=== PATIENT | female | born 2000 | race Caucasian/White ===

== ENCOUNTER 2021-04-04 14:12 | Emergency (ER) | payer OTHER, SELFPAY ==
[2021-04-04 14:20] VITALS: BP 101/74; PULSE 84; RESP 18; TEMP 36.7; O2SAT 100
--- NOTE | 2021-04-04 14:51 | ED.ABDPAIN ---
HPI - Abdominal Pain General Chief Complaint: Urogenital-Female Stated Complaint: lower abd pain Time Seen by Provider: 04/04/21 14:28 Source: patient and RN notes reviewed Mode of arrival: ambulatory Limitations: no limitations History of Present Illness HPI narrative: Patient presents today with a sudden onset pain in her perineum and rectum that started between 1350 and 1400 this afternoon. Denies injury. Pain is constant but waxes and wanes. Denies numbness or tingling in the genitals or legs. She currently rates her pain 4/10 at rest, which increases with movement, sitting, or standing. Pain is significantly worse when she is standing. Denies urinary symptoms to include urgency, frequency, dysuria, loss of bowel or bladder control. She has tried no medication for symptoms prior to arrival. Denies back pain Related Data Home Medications Medication Instructions Recorded Confirmed No Home Medications 04/04/21 04/04/21 Allergies Allergy/AdvReac Type Severity Reaction Status Date / Time No Known Allergies Allergy Verified 04/04/21 14:28 Review of Systems Review of Systems: Narrative: CONSTITUTIONAL: Denies body aches, fever, chills, or sweats. EYES: Denies visual changes, redness, or discharge. ENT: Denies rhinorrhea, congestion, sore throat, or otalgia. CARDIOVASCULAR: Denies chest pain, palpitations, or edema. RESPIRATORY: Denies cough or dyspnea. GASTROINTESTINAL: Denies abdominal pain, nausea, vomiting, or diarrhea. GENITOURINARY: Denies dysuria or hematuria.+ Perineal pain SKIN: Denies rash, itching, or wounds. MUSCULOSKELETAL: Denies back pain, joint pain, or myalgia. NEUROLOGIC: Denies headache, numbness, tingling, or weakness. PSYCH: Denies depression or anxiety. PMFSH Comments At time of signature, I have reviewed and agree with nursing past medical, surgical, social and family history unless otherwise noted. Please see nursing chart for further information. There is no relevant family history pertinent to the presenting complaint Exam Narrative: Exam Narrative: GENERAL: Well-appearing, well-nourished, and in no acute distress. HEAD: Normocephalic, atraumatic. EYES: EOMI. No redness or drainage. Conjunctivae normal. ENT: Mucous membranes pink and moist. NECK: Normal AROM. CHEST: No respiratory distress. ABDOMEN: Soft, nontender, nondistended, normal active bowel sounds. MUSCULOSKELETAL: Bony tenderness over the sacrum. Bilateral SI joint tenderness that extends down to coccyx. EXTREMITIES: Normal range of motion. No edema. Distal sensation intact. Saddle sensation intact. Capillary refill normal. SKIN: Warm, dry, no rash. Capillary refill normal. Normal skin turgor. NEURO: No focal deficits. Alert and oriented x3. Gait steady. Bilateral popliteal reflexes 2+. Dorsiflexion and plantarflexion against resistance is normal. PSYCH: Normal affect. No signs of depression or anxiety. Course Course Emergency Course: Due to patient's symptoms and the amount of discomfort she is in when she sits, and her negative UA, I feel it indicated to transfer her to the ER for further evaluation. Patient would like to go to [facility]. Vital Signs Vital signs: Vital Signs Temperature 98.0 F 04/04/21 14:20 Pulse Rate 84 04/04/21 14:20 Respiratory Rate 18 04/04/21 14:20 Blood Pressure 101/74 04/04/21 14:20 Pulse Oximetry 100 04/04/21 14:20 Temperature 98.0 F 04/04/21 14:20 Pulse Rate 84 04/04/21 14:20 Respiratory Rate 18 04/04/21 14:20 Blood Pressure 101/74 04/04/21 14:20 Pulse Oximetry 100 04/04/21 14:20 Reviewed Transfer Transfered to: [facility] ([place]) Transfer rationale: Sudden onset perineal pain, low back tenderness Accepting physician: Stefania MDM - Abdominal Pain Differential Diagnosis Differential diagnosis: Likely other (Cauda equina syndrome, sciatica, UTI, low back strain, piriformis strain) Lab Data Attestation: I reviewed the patient's
== END 2021-04-04 14:53 | disposition short-term general hospital (02) ==
PROVIDERS: Emergency Provider Nurse Practitioner; PCP Family Medicine
DX: R10.2 Pelvic and perineal pain (principal)
CPT/HCPCS: 81003; 99212; G0463

== ENCOUNTER 2022-02-20 08:22 | Emergency (ER) | payer OTHER, SELFPAY ==
[2022-02-20 08:32] VITALS: BP 91/65; PULSE 62; RESP 16; TEMP 36.5; O2SAT 100
--- NOTE | 2022-02-20 08:42 | ED.URI ---
HPI - URI/Sore Throat General Chief Complaint: Upper Respiratory Infection Stated Complaint: Sinus Pain Time Seen by Provider: 02/20/22 08:30 Source: patient and RN notes reviewed Mode of arrival: ambulatory Limitations: no limitations History of Present Illness HPI Narrative: 21-year-old female presents with concern for 3-day history of sinus congestion, pressure, drainage. Reports she has been trying [id number] remedies without relief. Reports she woke up with her left ear feeling clogged in her eye starting to have purulent drainage. She reports occasional cough. She denies fever, body aches, chills, sweats. MD elicited complaint: rhinorrhea and nasal congestion Related Data Home Medications Medication Instructions Recorded Confirmed levonorgestrel-ethinyl estrad 0.1 tablet PO DAILY 02/20/22 02/20/22 [Sronyx] Allergies Allergy/AdvReac Type Severity Reaction Status Date / Time No Known Allergies Allergy Verified 04/04/21 14:28 Review of Systems Review of Systems: CONSTITUTIONAL: Denies malaise, chills, sweats, or fever. EYES: Denies visual changes, redness, or discharge. ENT: Reports rhinorrhea, congestion, sinus pain, otalgia. Denies sore throat. CARDIOVASCULAR: Denies chest pain, palpitations, or edema. RESPIRATORY: Reports cough. Denies dyspnea. GASTROINTESTINAL: Denies abdominal pain, nausea, vomiting, diarrhea SKIN: Denies rash or itching. MUSCULOSKELETAL: Denies myalgia. NEUROLOGIC: Denies headache. All systems reviewed & are unremarkable except as noted in HPI and below PMFSH Comments At time of signature, agree with nursing past medical, surgical, social and family history. There is no relevant family history pertinent to the presenting complaint Exam Narrative: GENERAL: Well-appearing, well-nourished, and in no acute distress. HEAD: Normocephalic EYES: PERRLA, conjunctivae clear ENT: Nares clear, turbinates edematous and erythematous, purulent discharge. Mucous membranes moist. TM pearly polk with dull light reflex bilaterally; no tragal tenderness. Oropharynx not erythematous without lesions. Tonsils not enlarged and without exudate, no drooling, no hoarseness, no trismus, uvula midline. NECK: Supple. No lymphadenopathy CHEST: Clear to auscultation, breath sounds equal. No wheezing, rhonchi, rales, or stridor. No respiratory distress, speaks in full sentences. HEART: Regular rate and rhythm. No murmur heard. SKIN: Warm, dry, no rash. NEURO: Alert and oriented x3. PSYCH: Normal mood and affect Course Course Emergency Course: Patient is aware of diagnosis, understands and agrees to treatment plan. Anticipatory guidance given. Patient agrees to follow-up as directed and is aware of reasons to seek care at the emergency department. Portions of this record may have been created with voice recognition software Level of Care: Express Care Visit Vital Signs Vital signs: Vital Signs Temperature 97.7 F 02/20/22 08:32 Pulse Rate 62 02/20/22 08:32 Respiratory Rate 16 02/20/22 08:32 Blood Pressure 91/65 L 02/20/22 08:32 Pulse Oximetry 100 02/20/22 08:32 Temperature 97.7 F 02/20/22 08:32 Pulse Rate 62 02/20/22 08:32 Respiratory Rate 16 02/20/22 08:32 Blood Pressure 91/65 L 02/20/22 08:32 Pulse Oximetry 100 02/20/22 08:32 Reviewed. MDM - URI/Sore Throat MDM Narrative Medical decision making narrative: Differential diagnosis considered: Lees virus, strep pharyngitis, allergic rhinitis, upper respiratory tract infection, sinusitis, rhinosinusitis, nasopharyngitis. viral pharyngitis, otitis media, otitis externa, pneumonia, bronchitis, viral cough syndrome, viral syndrome, and influenza. Exam findings show no acute concerns or changes; patient is non-toxic appearing and is in no distress. Patient is appropriate for outpatient treatment and follow-up. Lab Data Attestation: I reviewed the patient's lab results. Critical Care Time Critical Care Time Critical Car
== END 2022-02-20 08:49 | disposition home or self-care (01) ==
PROVIDERS: Emergency Provider Nurse Practitioner; PCP Family Medicine
DX: J01.90 Acute sinusitis, unspecified (principal)
CPT/HCPCS: 99213; G0463

== ENCOUNTER 2022-10-12 12:52 | Emergency (ER) | payer OTHER, SELFPAY ==
[2022-10-12 13:02] VITALS: BP 114/53; PULSE 83; RESP 18; TEMP 37.3; O2SAT 99
--- NOTE | 2022-10-12 15:27 | ED.URI ---
HPI - URI/Sore Throat General Chief Complaint: Upper Respiratory Infection Stated Complaint: Cough/Sinus Congestion Time Seen by Provider: 10/12/22 15:27 Source: patient and RN notes reviewed Mode of arrival: ambulatory Limitations: no limitations History of Present Illness HPI Narrative: 22-year-old female presenting for complaint of harsh cough sinus congestion over the last 2 days. States the cough was so severe this morning she Vomited. 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 She denies shortness of breath, wheezing, nausea, diarrhea, fever chills. MD elicited complaint: cough Related Data Home Medications Medication Instructions Recorded Confirmed levonorgestrel-ethinyl estradiol tablet 10/12/22 10/12/22 0.1 mg-20 mcg tablet (Sronyx) Allergies Allergy/AdvReac Type Severity Reaction Status Date / Time No Known Allergies Allergy Verified 10/12/22 14:53 Review of Systems Review of Systems: ROS per HPI Exam Narrative: GENERAL: well-appearing EYES: PERRLA, conjunctivae clear ENT: Mucous membranes moist. TMs pearly polk with dull light reflex bilaterally; no tragal tenderness. Oropharynx erythematous without lesions or exudate NECK: Supple. No lymphadenopathy CHEST: Clear to auscultation, breath sounds equal. No wheezing, rhonchi, rales, or stridor. HEART: Regular rate and rhythm. No murmur heard. SKIN: Warm, dry, no rash. NEURO: Alert and oriented x3. PSYCH: Normal mood and affect Course Course Emergency Course: Patient is aware of diagnosis, understands and agrees to treatment plan. Anticipatory guidance given. Patient agrees to follow-up as directed and is aware of reasons to seek care at the emergency department. Portions of this record may have been created with voice recognition software Level of Care: Express Care Visit Vital Signs Vital signs: Vital Signs Temperature 99.1 F 10/12/22 13:02 Pulse Rate 83 10/12/22 13:02 Respiratory Rate 18 10/12/22 13:02 Blood Pressure 114/53 L 10/12/22 13:02 Pulse Oximetry 99 10/12/22 13:02 Oxygen Delivery Room Air 10/12/22 13:02 Temperature 99.1 F 10/12/22 13:02 Pulse Rate 83 10/12/22 13:02 Respiratory Rate 18 10/12/22 13:02 Blood Pressure 114/53 L 10/12/22 13:02 Pulse Oximetry 99 10/12/22 13:02 Oxygen Delivery Room Air 10/12/22 13:02 reviewed MDM - URI/Sore Throat MDM Narrative Medical decision making narrative: Advised supportive measures and signs/symptoms to go to the ER. Pt is appropriate for outpt treatment and f/u. Differential Diagnosis Differential diagnosis: Likely upper respiratory infection, sinusitis and viral infection Discharge Plan Discharge Clinical Impression: Viral infection Patient Disposition: Home, Self-Care Condition: Stable Instructions: Upper Respiratory Infection (ED) Additional Instructions: Recommend Flonase spray and Zyrtec (or Claritin/Babs) over the counter Cough syrup may cause drowsiness; avoid driving or take it at night time. Tylenol and Motrin every 8 hours as needed for pain Symptomatic treatment includes: rest, fluids, and increase humidity of the air at home. Follow up with your primary care provider in 1 week. Go to the ER for worsening symptoms or concerns. Prescriptions: No Action levonorgestrel-ethinyl estrad [Sronyx] 0.1-20 mg-mcg tablet Follow-up/Referrals: Alfonso,Heron Dupont MD [Primary Care Provider] - Stand Alone Forms: Work/School Release IP Time of Disposition: 15:34
== END 2022-10-12 15:35 | disposition home or self-care (01) ==
PROVIDERS: Emergency Provider Nurse Practitioner Family; PCP Family Medicine
DX: B34.9 Viral infection, unspecified (principal)
CPT/HCPCS: 99211; G0463

== ENCOUNTER 2024-05-12 08:09 | Emergency (ER) | payer OTHER, SELFPAY ==
--- NOTE | ~2024-05-12 | XR_ITS ---
EXAMINATION: XR knee RT min 4V DATE: 05/12/2024 08:30 INDICATION: Medial right knee pain TECHNIQUE: Anteroposterior, 2 oblique and crosstable lateral views of the affected knee were obtained COMPARISON: None. FINDINGS: Alignment is normal. No fracture. No joint effusion/layering lipohemarthrosis. Soft tissues are unre markable. IMPRESSION: 1. Negative right knee radiographs. Reviewed, dictated and finalized at location A.
[2024-05-12 08:17] VITALS: BP 116/58; PULSE 63; RESP 16; TEMP 37.1; O2SAT 100
--- NOTE | 2024-05-12 08:20 | ED.LOWEXIN ---
HPI - Extremity Injury (Lower) General Chief Complaint: Extremity Injury, Lower Stated Complaint: Right knee injury History of Present Illness HPI Narrative: Patient presents with right knee pain. 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 Patient has a knee brace on with minimal relief from the pain and discomfort Related Data Home Medications Medication Instructions Recorded Confirmed levonorgestrel-ethinyl estradiol tablet 10/12/22 10/12/22 0.1 mg-20 mcg tablet (Sronyx) Allergies Allergy/AdvReac Type Severity Reaction Status Date / Time No Known Allergies Allergy Verified 10/12/22 14:53 Review of Systems Review of Systems: My reviews am CONSTITUTIONAL: Denies fever, chills, or sweats. EYES: Denies visual changes, redness, or discharge. ENT: Denies rhinorrhea, congestion, sore throat, or otalgia. CARDIOVASCULAR: Denies chest pain, palpitations, or edema. RESPIRATORY: Denies cough or dyspnea. GASTROINTESTINAL: Denies abdominal pain, nausea, vomiting, or diarrhea. GENITOURINARY: Denies dysuria or hematuria. SKIN: Denies rash or itching. MUSCULOSKELETAL: Denies back pain, joint pain, or myalgia. NEUROLOGIC: Denies headache, numbness, or weakness. PSYCHIATRIC: Denies anxiety or depression. PMFSH Comments At time of signature, agree with nursing past medical, surgical, social and family history. There is no relevant family history pertinent to the presenting complaint Exam Narrative: GENERAL: Well-appearing, well-nourished, and in no acute distress. HEAD: Normocephalic, atraumatic. EYES: PERRLA and EOMI. ENT: Nares clear, no rhinorrhea or epistaxis. Mucous membranes moist. NECK: Supple. CHEST: Clear to auscultation. No respiratory distress. HEART: Regular rate and rhythm. No murmur heard. Normal peripheral pulses. ABDOMEN: Soft, nontender, nondistended, normal active bowel sounds. EXTREMITIES: Normal range of motion. No edema. SKIN INTACT. NO DEFORMITY. NORMAL ROM, HAS FULL EXTENSION AND FLEXION. COMPARTMENTS SOFT. NEGATIVE ANTERIOR, POSTERIOR DRAWER SIGNS ON TEST. NO CREPITUS. DP PULSE, NORMAL CAPILLARY REFILL MCMURRAYS, PAIN TO RIGHT MEDIAL AND DISTAL KNEE WITH KNEE FLEXION, INTERNAL AND EXTERNAL FOOT ROTATION.NO ERYTHEMA OR INCREASED WARMTH TO CALF. . SKIN: Warm, dry, no rash. NEURO: No focal deficits. Alert and oriented x3. [place] Scale Eye Opening: Spontaneous 4 [place] Scale Motor: Obeys Commands 6 [place] Scale Verbal: Oriented 5 [place] Scale Total 15 Course Course Level of Care: Express Care Visit Vital Signs Vital signs: Vital Signs Temperature 37.1 C 05/12/24 08:17 Pulse Rate 63 05/12/24 08:17 Respiratory Rate 16 05/12/24 08:17 Blood Pressure 116/58 L 05/12/24 08:17 Pulse Oximetry 100 05/12/24 08:17 Oxygen Delivery Room Air 05/12/24 08:17 Temperature 37.1 C 05/12/24 08:17 Pulse Rate 63 05/12/24 08:17 Respiratory Rate 16 05/12/24 08:17 Blood Pressure 116/58 L 05/12/24 08:17 Pulse Oximetry 100 05/12/24 08:17 Oxygen Delivery Room Air 05/12/24 08:17 MDM - Extremity Injury (Lower) Imaging Data My impression: negative Radiologist's impression: negative Discharge Plan Discharge Clinical Impression: Knee contusion Patient Disposition: Home, Self-Care Condition: Stable Instructions: Antibiotic Form, Knee Sprain (DC) Additional Instructions: Ice to the area 20-30 minutes 4-6 times a day Elevate above heart Elastic wrap or orthopedic splint as directed for comfort for the next 5-7 days Crutches as directed if needed Tylenol for lesser pain Ibuprofen regularly for the next 2-3 days for the inflammation Follow-up with orthopedic on-call Dr. Ratliff, call office in a.m. for follow-up appointment Follow-up with PCP if further problems or concerns -If you have any worsening of symptoms or any other concerns please go to
== END 2024-05-12 08:46 | disposition home or self-care (01) ==
PROVIDERS: Emergency Provider Nurse Practitioner Family; PCP Family Medicine
DX: S80.01XA Contusion of right knee, initial encounter (principal); X58.XXXA Exposure to other specified factors, initial encounter; Y93.72 Activity, wrestling
CPT/HCPCS: 73564; 99213; G0463

== ENCOUNTER 2024-09-09 18:40 | Emergency (ER) | payer OTHER, SELFPAY ==
--- NOTE | 2024-09-09 18:45 | ED_ITS ---
HPI - URI/Sore Throat General Chief Complaint: Upper Respiratory Infection Stated Complaint: Upper respiratory Source: patient Mode of arrival: ambulatory Limitations: no limitations History of Present Illness HPI Narrative: 24-year-old female presented for complaint of cough x2 days and nasal congestion with drainage for 2 weeks. Denies sob, wheezing, n/v/d/f/c. Says she gets sinus infections in spring and fall. Took a dose of Mucinex without relief. Related Data Home Medications Medication Instructions Recorded Confirmed levonorgestrel-ethinyl estradiol tablet 10/12/22 06/06/24 0.1 mg-20 mcg tablet (Sronyx) buspirone 5 mg tablet 5 mg PO BID 06/17/24 Allergies Allergy/AdvReac Type Severity Reaction Status Date / Time No Known Allergies Allergy Verified 06/06/24 11:46 Review of Systems Review of Systems: CONSTITUTIONAL: Denies body aches, fever, chills, or sweats. EYES: Denies visual changes, redness, or discharge. ENT: reports rhinorrhea, congestion,Denies sore throat, or otalgia. CARDIOVASCULAR: Denies chest pain, palpitations, or edema. RESPIRATORY: Reports cough, denies sob, wheezing. GASTROINTESTINAL: Denies abdominal pain, nausea, vomiting, or diarrhea. MUSCULOSKELETAL: Denies back pain, joint pain, or myalgia. 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 Please see nursing chart for further information. There is no relevant family history pertinent to the presenting complaint Exam Narrative: GENERAL: Well-appearing, in no acute distress. EYES: EOMI. No redness or drainage. Conjunctivae normal. ENT: Mucous membranes pink and moist. rhinorrhea. TMs normal bilaterally. Throat normal. Uvula midline. NECK: Normal AROM. Supple. CHEST: No respiratory distress. lungs clear to all dominguez. HEART: Regular rate and rhythm. No murmur appreciated. SKIN: Warm, dry, no rash. Capillary refill normal. Normal skin turgor. NEURO: Alert and oriented x3. Gait steady. PSYCH: Normal affect. Course Course Emergency Course: Patient is aware of diagnosis, understands and agrees to treatment plan. Anticipatory guidance given. Patient agrees to follow-up as directed and is aware of reasons to seek care at the emergency department. Portions of this record may have been created with voice recognition software Level of Care: Express Care Visit MDM - URI/Sore Throat MDM Narrative Medical decision making narrative: Discussed physical exam findings. Advised supportive measures and signs/symptoms to go to the ER. Pt is appropriate for outpt treatment and f/u. Differential Diagnosis Differential diagnosis: Likely upper respiratory infection, otitis media, sinusitis, viral infection and bronchitis Discharge Plan Discharge Clinical Impression: Sinusitis Patient Disposition: Home, Self-Care Condition: Stable Instructions: Antibiotic Form, Rhinosinusitis (ED) Additional Instructions: Take antibiotic as directed Recommend Flonase spray and Zyrtec (or Claritin/Babs) over the counter Cough syrup may cause drowsiness; avoid driving or take it at night time. Tylenol 1000mg every 8 hours as needed for pain Symptomatic treatment includes: rest, fluids, and increase humidity of the air at home. Follow up with your primary care provider in 1 week. Go to the ER for worsening symptoms or concerns. Prescriptions: New methylprednisolone [Medrol (Elijah)] 4 mg tablets,dose pack See Rx Instructions .ROUTE .COMPLEX Qty: 21 0RF Rx Instructions: orally per package directions amoxicillin-pot clavulanate 875-125 mg tablet 1 tablet PO Q12H 7 Days Qty: 14 0RF No Action levonorgestrel-ethinyl estrad [Sronyx] 0.1-20 mg-mcg tablet buspirone 5 mg tablet 5 mg PO BID Follow-up/Referrals: Alfonso,Heron Dupont MD [Primary Care Provider] - Stand Alone Forms: Work/School Release IP
[2024-09-09 18:49] VITALS: BP 113/71; PULSE 86; RESP 16; TEMP 37.2; O2SAT 97
== END 2024-09-09 18:59 | disposition home or self-care (01) ==
PROVIDERS: Emergency Provider Nurse Practitioner Family; PCP Family Medicine
DX: J32.9 Chronic sinusitis, unspecified (principal); F17.290 Nicotine dependence, other tobacco product, uncomplicated
CPT/HCPCS: 99213; G0463

== ENCOUNTER 2024-12-22 14:40 | Emergency (ER) | payer OTHER, SELFPAY ==
--- NOTE | ~2024-12-22 | XR_ITS ---
HISTORY: left lateral rib pain COMPARISON: None TECHNIQUE: 3 views of the left ribs were performed along with a frontal view of the chest. FINDINGS: No acute displaced fracture is appreciated. The cardiomediastinal silhouette is unremarkable. The lungs are clear. Bone mineralization is age-appropriate. IMPRESSION: No acute displaced rib fracture. No focal infiltrate or effusion. Reviewed, dictated and finalized at location A. 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
--- NOTE | ~2024-12-22 | XR_ITS ---
HISTORY: left shoulder pain COMPARISON: None TECHNIQUE: 3 views of the left shoulder were performed. FINDINGS: No acute fracture. The glenohumeral and acromioclavicular joint space is maintained The visualized portion of the adjacent left lung is clear. The humeral head is well seated within the glenoid fossa. IMPRESSION: No acute fracture or anterior dislocation. Reviewed, dictated and finalized at location A. 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
--- OUTSIDE RECORDS SUMMARY | 2024-12-22 14:43 | XMS_ITS | Encounter Summary ---
Author Organization [facility] Address [address] [facility] [place] [address] Phone Care Team Providers Care Counsellors Name Role Phone Heron Hamilton MD Primary Care Provider [phone] Gerri Tamez APRN, CLINCHING MACHINE OPERATOR Unavailable [phone] Reason for Visit * Reason Comments Medication Refill Encounter Details Date Type Department Care Team (Late st Contact Info) Description 01/02/2024 Refill [facility] - Family Medicine - [place] [address] [place] [address] Jean Marie Melendez APRN, CLINCHING MACHINE OPERATOR [address] [address] Medication Refill Social History Tobacco Use Types Packs/Day Years Used Date Smoking Tobacco: Never Smokeless Tobacco: Never Alcohol Use Standard Drinks/Week Comments Never 0 (1 standard drink = 0.6 oz pur e alcohol) [facility] Utilities Answer Date Recorded In the past 12 months has [employer] electric, gas, oil, or water company threatened to shut off services in your home? No 11/09/2023 Social Connection and Isolat ion Panel [NHANES] Answer Date Recorded In a typical week, how many times do you talk on the phone with family, friends, or neighbors? Three times a week 11/09/2023 How often do you get togethe r with friends or relatives? Twice a week 11/09/2023 How often do you attend chur ch or muslim services? Never 11/09/2023 Do you belong to any clubs o r organizations such as holiness groups, unions, fraternal or athletic groups, or school groups? Yes 11/09/2023 How often do you attend meet ings of the clubs or organizations you belong to? More than 4 times per year 11/09/2023 Are you , , di vorced, , never , or living with a partner? Never 11/09/2023 AUDIT-C Answer Date Recorded Q1: How often do you have a drink containing alcohol? Never 11/09/2023 Q2: How many drinks containi ng alcohol do you have on a typical day when you are drinking? Patient does not drink Q3: How often do you have si x or more drinks on one occasion? Never 11/09/2023 Overall Financial Resource Strain (CARDIA) Answe r Date Recorded How hard is it for you to pa y for the very basics like food, housing, medical care, and heating? Not very hard 11/09/2023 PHQ-2 Answer Date Recorded Total Score - Questions 1-9 0 06/01 [facility] Occup[facility] ional [facility] - Occupational Stress Questionnaire Answer Date Recorded Do you feel stress - tense, restless, nervous, or anxious, or unable to sleep at night because your mind is troubled all the time - these days? Not at all 11/09/2023 Exercise Vital Sign Answer Date Recorde d On average, how many days pe r week do you engage in moderate to strenuous exercise (like a brisk walk)? Patient declined On average, how many minutes do you engage in exercise at this level? Patient declined 11/09/2023 Hunger Vital Sign Answer Date Recorded Within the past 12 months, y ou worried that your food would run out before you got the money to buy more. Never true 11/09/19 24 Within the past 12 months, t he food you bought just didn't last and you didn't have money to get more. Never true 11/09/2023 PRAPARE - Transportation Answer Date Re corded In the past 12 months, has l ack of transportation kept you from medical appointments or from getting medications? No 10/30 In the past 12 months, has l ack of transportation kept you from meetings, work, or from getting things needed for daily living? No 11/09/2023 Housing Stability Vital Sign Answer Martin e Recorded In the last 12 months, was t here a time when you were not able to pay the mortgage or rent on time? No 11/09/2023 In the last 12 months, how many places have you lived? 1 11/09/2023 In the last 12 months, was t here a time when you did not have a steady place to sleep or slept in a skilled nursing (including now)? No 11/09/2023 Education Answer Date Recorded What is the highest level of school you have completed or the highest degree you have received? 12th grade 05/18/2023 Sexually Active Control Partners Comments Not Currently Male Comments No Sex and Gender Information Value Date Recorded Sex Assigned at Not on file Legal Sex Female 2:29 PM CDT Gender Identity Not on file Sexual Orientation Not on file documented as of this encounter Miscellaneous Notes * Telephone Encounter - Amber Mayer RN - 01/02/2024 3:18 PM CST Medication failed the protocol, provider to review and approve the medication order if appropriate. Requested Prescriptions Pending Prescriptions Disp Refills busPIRone (BUSPAR) 5 MG Tablet [Pharmacy Med Name: BUSPIRONE HCL 5 MG TABLET] 60 Tablet 1 Sig: TAKE 1 TABLET BY MOUTH TWICE A DAY Buspirone (6 Month Refill Only) Protocol Failed - 01/02/2024 12:44 AM Failed - Patient has established therapy with Buspirone for at least 6 months Passed - No test in the past 12 months or most recent test was negative Passed - No active on record Passed - Visit with relevant provider in past 6 months or upcoming 90 days Recent Visits Date Type Provider Dept 12/15/23 Office Visit Heron Hamilton MD [facility] 12/06/23 Office Visit Jean Marie Melendez APRN, [facility] 11/10/23 Office Visit Heron Hamilton MD [facility] Showing recent visits within past 182 days and meeting all other requirements Future Appointments No visits were found meeting these conditions. Showing future appointments within next 90 days and meeting all other requirements Passed - Has an encounter in the past 6 months with a depression or anxiety visit diagnosis OR STORE MANAGER documented in this encounter Plan of Treatment Upcoming Encounters Date Type Department Care Team (Late st Contact Info) Description 12/23/2024 1:45 PM LIQUOR STORE MANAGER Office Visit [facility] - Family Medicine [facility] [address] [place] [address] Katharina Ornelas APRN, CLINCHING MACHINE OPERATOR [address] [place] [address] documented as of this encounter Visit Diagnoses Diagnosis Anxiety Anxiety state, unspecified documented in this encounter Additional Health Concerns Assessment Noted Time PHQ-9 Depression Total Score: 11 024 1:57 PM LIQUOR STORE MANAGER documented as of this encounter Care Teams Counsellors Relationship Specialty Start Date End Date Heron Hamilton MD PCP - General Family Medicine 11/22/19 Gerri Tamez APRN, CLINCHING MACHINE OPERATOR [address] [place] [address] Nurse Practitioner Obstetrics & Gynecology 10/07/22 documented as of this encounter
--- OUTSIDE RECORDS SUMMARY | 2024-12-22 14:43 | XMS_ITS | Encounter Summary ---
Author Organization [facility] Address [address] [place] [address] Phone Care Team Providers Care Flame Hardening Machine Operator Name Role Phone Heron Hamilton MD Primary Care Provider [phone] Gerri Tamez APRN, BARREL CAP SETTER Unavailable [phone] Reason for Visit * Reason Comments Medication Refill Encounter Details Date Type Department Care Team (Late st Contact Info) Description 03/26/[address] [facility] - Family Medicine [facility] [address] [place] [address] Heron Hamilton MD [address] [place] [address] Medication Refill Social History Tobacco Use Types Packs/Day Years Used Date Smoking Tobacco: Never Smokeless Tobacco: Never Alcohol Use Standard Drinks/Week Comments Never 0 (1 standard drink = 0.6 oz pur e alcohol) [facility] Utilities Answer Date Recorded In the past 12 months has [employer] electric, gas, oil, or water company threatened [...] often do you attend chur ch or restoration services? Never 11/09/2023 Do you belong to any clubs o r organizations such as orthodoxy groups, unions, fraternal or athletic groups, or [...] Total Score - Questions 1-9 0 06/01 [facility]at [facility] - Occupational Stress Questionnaire Answer Date Recorded [...] place to sleep or slept in a care home (including now)? No 11/09/2023 Education Answer Date [...] Telephone Encounter - Amber Mayer RN - 03/27/2024 7:45 AM CDT Approved Hamilton patient. * Telephone Encounter - Amber Mayer RN - 03/27/2024 7:44 AM CDT Medication failed the protocol, provider to review and approve the medication order if appropriate. Requested Prescriptions Pending Prescriptions Disp Refills busPIRone (BUSPAR) 5 MG Tablet [Pharmacy Med Name: BUSPIRONE HCL 5 MG TABLET] 60 Tablet 1 Sig: TAKE 1 TABLET BY MOUTH TWICE A DAY Buspirone (6 Month Refill Only) Protocol Failed - 03/26/2024 12:28 AM Failed - Patient has established therapy with Buspirone for at least 6 months Passed - No test in the past 12 months or most recent test was negative Passed - No active on record Passed - Visit with relevant provider in past 6 months or upcoming 90 days Recent Visits Date Type Provider Dept 12/15/23 Office Visit Heron Hamilton MD [facility] 12/06/23 Office Visit Jean Marie Melendez APRN, CNP [facility] 11/10/23 Office Visit Heron Hamilton MD [facility] Showing recent visits within past 182 days and meeting all other requirements Future Appointments No visits were found meeting these conditions. Showing future appointments within next 90 days and meeting all other requirements Passed - Has an encounter in the past 6 months with a depression or anxiety visit diagnosis documented in this encounter Plan of Treatment Upcoming Encounters Date Type Department Care Team (Late st Contact Info) Description 12/23/2024 1:45 PM SEAFOOD CLERK Office Visit [facility] - Family Medicine - [place] [address] [place] [address] Katharina Ornelas APRN, BARREL CAP SETTER [address] [place] [address] documented as of this encounter Visit Diagnoses Diagnosis Anxiety Anxiety state, unspecified documented in this encounter Additional Health Concerns Assessment Noted Time PHQ-9 Depression Total Score: 11 024 1:57 PM SEAFOOD CLERK documented as of this encounter Care Teams Flame Hardening Machine Operator Relationship Specialty Start Date End Date Heron Hamilton MD PCP - General Family Medicine 11/22/19 Gerri Tamez APRN, BARREL CAP SETTER [address] [place] [address] Nurse Practitioner Obstetrics & Gynecology 10/07/22 documented as of this encounter
--- OUTSIDE RECORDS SUMMARY | 2024-12-22 14:43 | XMS_ITS ---
Care Plan - [facility] Created on: December 22, 2024 COURTSKY : 2000 Sex: Female Author Organization [facility] Address [address] [place] [address] Phone Care Team Providers Care Jewel Corner Brushing Machine Operator Name Role Phone CASTILLO RIVAS, MAGED Primary Care Provider [phone] RON RIVAS, GABRIELLA C Unavailable [phone]
--- OUTSIDE RECORDS SUMMARY | 2024-12-22 14:44 | XMS_ITS | Clinical Summary ---
Author Organization [facility] Address [address] [place] [address] Phone Care Team Providers Care Computer Bookkeeper Name Role Phone Heron Hamilton MD Primary Care Provider [phone] Gerri Tamez APRN, FLOWER CUTTER Unavailable [phone] Allergies Active Allergy Reactions Criticality Noted Date Comments Bee Venom Rash,Itching,Swelling Medium 12/18/2020 Medications Sronyx 0.1-20 MG-MCG Tablet 10/06/2021 Activ e busPIRone (BUSPAR) 15 MG Tablet TAKE 1 TABLET BY MOUTH IN THE MORNING AND AT BEDTIME 60 Tablet 2 11/19/2024 Active Active Problems Problem Noted Date Diagnosed Date Anxiety 07/19/2023 Encounter for screening for HIV 10/07/2022 Need for hepatitis B screening test 10/07/2022 Need for hepatitis C screening test 10/07/2022 Resolved Problems Problem Noted Date Diagnosed Date Resolved Date Illness, unspecified 05/12/2021 11/10/2023 024 Acute otitis media 03/28/2019 4 Acute sinusitis 03/28/2019 12/15/2023 Encounters Date Type Department Care Team Description 12/11/2024 4:30 PM TELEGRAPH REPEATER MECHANIC Office Visit [facility] - [facility] [address] [place] [address] Jean Marie Melendez, RESIN COATER, FLOWER CUTTER Encounter for general adult medical examination without abnormal findings (Primary Dx); Screening for tuberculosis; Screening for HIV (human immunodeficiency virus); Encounter for hepatitis C screening test for low risk patient Discharge Disposition: Discharged to home or Selfcare 12/11/2024 Travel 11/18/2024 Refill [facility] [address] [place] [address] Heron Hamilton MD Medication Refill from Last 3 Months Immunizations Immunization Administration Dates Next Due Covid-19 Vaccine, Vector-nr, Rs-ad26, Pf, 0.5 Ml ([employer]) 06/23/2021 DTAP VACCINE, UNSPECIFIED FORMULATION ,07/30/2001,06/28/2000,04/25,1999 Hepatitis A Vaccine, Pediatric/adolescent, 2 Dose Schedule 08/20/2014 Hepatitis A Vaccine,unspecif ied Formulation 08/02/2012 Hepatitis B Vaccine,unspecif ied Formulation 12/14/2000,04/25/2000,1999 Hib Vaccine,unspecified Formulation 10/2000,06/28/2000,04/25/2000,08/18 Hpv, Unspecified Formulation 06/03/2020 Human Papillomavirus (HPV) 9 -valent Vaccine 07/17/2017 Influenza Vaccine Quadrivalent Nasal 08/20/2014 Influenza Vaccine greater than 3 yrs 07/27/2020 Influenza Vaccine, Quadrivalent, PF 10/26/2021,0 07/27/2020 MMR Vaccine 10/05/2004,12/14/2000 Meningococcal Vaccine 07/17/2017 Meningococcal Vaccine, Unspe cified Formulation 08/02/2012 OPV 10/05/2004, 1,04/25/2000,08/18 TDAP Vaccine 08/02/2012 Varicella Vaccine Live 08/02/2012,12/14/2000 Family History Medical History Relation Name Comments Asthma Brother 2 Raudel Diabetes Maternal Grandmother Holli Cancer Paternal Grandmother Lisa Relation Name Status Comments Brother 1 Alive Brother 2 Raudel Alive Father Alive Maternal Grandfather Other Unknown Maternal Grandmother [place] Alive Mother Alive Paternal Grandfather Alive Paternal Grandmother Lisa Sister Alive Social History Tobacco Use Types Packs/Day Years Used Date Smoking Tobacco: Never Smokeless Tobacco: Never Tobacco Cessation:Counseling Given: No Alcohol Use Standard Drinks/Week Comments Never 0 (1 standard drink = 0.6 oz pur e alcohol) [facility] Utilities Answer Date Recorded In the past 12 months has e electric, gas, oil, or water company threatened to shut off services in your home? No 12/11/2024 Social Connection and Isolat ion Panel [NHANES] Answer Date Recorded In a typical week, how many times do you talk on the phone with family, friends, or neighbors? Twice a week 12/11/2024 How often do you get togethe r with friends or relatives? Once a week 12/11/2024 How often do you attend chur ch or samaritan services? Never 12/11/2024 Do you belong to any clubs o r organizations such as congregation groups, unions, fraternal or athletic groups, or school groups? Yes 12/11/2024 How often do you attend meet ings of the clubs or organizations you belong to? More than 4 times per year 12/11/2024 Are you , , di vorced, , never , or living with a partner? Never 12/11/2024 AUDIT-C Answer Date Recorded Q1: How often do you have a drink containing alcohol? Never 12/11/2024 Q2: How many drinks containi ng alcohol do you have on a typical day when you are drinking? Patient does not drink Q3: How often do you have si x or more drinks on one occasion? Never 12/11/2024 Overall Financial Resource Strain (CARDIA) Answe r Date Recorded How hard is it for you to pa y for the very basics like food, housing, medical care, and heating? Not very hard 12/11/2024 PHQ-2 Answer Date Recorded Total Score - Questions 1-9 0 11/30 [facility] [place] of Occupat ional Health - Occupational Stress Questionnaire Answer Date Recorded Do you feel stress - tense, restless, nervous, or anxious, or unable to sleep at night because your mind is troubled all the time - these days? Only a little 12/11/2024 Exercise Vital Sign Answer Date Recorde d On average, how many days pe r week do you engage in moderate to strenuous exercise (like a brisk walk)? 3 days 12/11/2024 On average, how many minutes do you engage in exercise at this level? 30 min 12/11/2024 Hunger Vital Sign Answer Date Recorded Within the past 12 months, y ou worried that your food would run out before you got the money to buy more. Never true 12/11/19 25 Within the past 12 months, t he food you bought just didn't last and you didn't have money to get more. Never true 12/11/2024 PRAPARE - Transportation Answer Date Re corded In the past 12 months, has l ack of transportation kept you from medical appointments or from getting medications? No 11/30 In the past 12 months, has l ack of transportation kept you from meetings, work, or from getting things needed for daily living? No 12/11/2024 Housing Stability Vital Sign Answer Martin e [...] place to sleep or slept in a chcf (including now)? No 11/09/2023 Housing Stability Vital Sign Answer Martin e Recorded In the last 12 months, was t here a time when you were not able to pay the mortgage or rent on time? No 12/11/2024 In the past 12 months, how m any times have you moved where you were living? 0 12/11/2024 At any time in the past 12 m [facility], were you homeless or living in a chcf (including now)? No 12/11/2024 Education Answer Date Recorded What is the highest level of school you have completed or the highest degree you have received? 12th grade 05/18/2023 Sexually Active Control Partners Comments Yes Male Condom, Oral Contraceptive Male Comments No Sex and Gender Information Value Date Recorded Sex Assigned at Not on file Legal Sex Female 2:29 PM CDT Gender Identity Not on file Sexual Orientation Not on file Last Filed Vital Signs Vital Sign Reading Time Taken Comments Blood Pressure 128/72 12/11/2024 4:30 PM TELEGRAPH REPEATER MECHANIC Pulse 88 12/11/2024 4:30 PM TELEGRAPH REPEATER MECHANIC Temperature 36.7 C (98.1 F) 12/11/2024 4:30 PM TELEGRAPH REPEATER MECHANIC Respiratory Rate 16 12/11/2024 4:30 PM TELEGRAPH REPEATER MECHANIC Oxygen Saturation 98% 12/11/2024 4:30 PM TELEGRAPH REPEATER MECHANIC Inhaled Oxygen Concentration - - Weight 50.8 kg (112 lb) 12/11/2024 4:30 PM TELEGRAPH REPEATER MECHANIC Height 144.8 cm (4' 9 ) 12/11/2024 4:30 PM TELEGRAPH REPEATER MECHANIC Body Mass Index 24.24 12/11/2024 4:30 PM TELEGRAPH REPEATER MECHANIC Plan of Treatment Upcoming Encounters Date Type Department Care Team (Late st Contact Info) Description 12/23/2024 1:45 PM TELEGRAPH REPEATER MECHANIC Office Visit [facility] - Family Medicine [facility] [address] [place] [address] Katharina Ornelas, RESIN COATER, FLOWER CUTTER [address] [place] [address] Health Maintenance Due Date Last Done Comments Human Papillomavirus (HPV) Immunization (3 - 3-dose series) 08/26/2020 06/03/2020, 07/17/2017 DTaP/Tdap/Td Immunization (7 - Td or Tdap) 08/02/2022 08/02/2012, 10/05/2004, 07/30/2001, Additional history exists Pap Smear 05/22/2026 05/22/2023 Respiratory Syncytial Virus (RSV) Immunization (Adult) (1 - 1-dose 75+ series) 2074 Hepatitis B Immunization Completed 001, 04/25/2000, 1999 Meningococcal Immunization (ACWY) Completed 07/17/2017, 08/02/2012 Influenza Immunization Discontinued , 07/27/2020, 07/27/2020, Additional history exists SARS-COV-2 Immunization Discontinued 12/21/2021, 06/23 Hepatitis C Virus (HCV) Screening Completed 10/07/2022, 10/26/2021 Pneumococcal Immunization Combined Aged Out No longer eligible based on patient's age to complete this topic Rotavirus Immunization Aged Out No lo nger eligible based on patient's age to complete this topic Procedures Procedure Name Priority Date/Time Associated Diagnosis Comments HEPATITIS PANEL ACUTE (AHP) Routine 10/07/2022 1:38 PM TELEGRAPH REPEATER MECHANIC Need for hepatitis B screening test Need for hepatitis C screening test from Last 3 Months or Most Recently Relevant to Health Maintenance Results * HEPATITIS PANEL ACUTE (AHP) (10/07/2022 1:38 PM TELEGRAPH REPEATER MECHANIC) HEPATITIS A IGM ANTIBODY NON DETECTED NON DETECTED [place] [id number] 10/07/2022 9:43 PM TELEGRAPH REPEATER MECHANIC [facility] Comment: IGM Antibodies to HAV not detected. Does not exclude early acute or recovered HAV infection. HEP B CORE AB (IGM) NON DETECTED NON DETECTED [place] [id number] 10/07/2022 9:43 PM TELEGRAPH REPEATER MECHANIC [facility] Comment:IGM anti-HBC not det ected. Does not exclude the possibility of exposure to or infection with HBV. HEPATITIS B SURFACE ANTIGEN NON DETECTED NON DETECTED [place] [id number] 10/07/2022 9:43 PM TELEGRAPH REPEATER MECHANIC [facility] Comment:A nonreactive test r esult does not exclude the possibility of exposure to or infection with Hepatitis B virus. A nonreactive test result in individuals with prior exposure to hepatitis B may be due to antigen levels below the detection limit of this assay or lack of antigen reactivity to the antibodies in this assay. hepatitis C antibody 0.15 <1 S/CO [place] [id number] B 10/07/2022 9:43 PM TELEGRAPH REPEATER MECHANIC [facility] Comment: Signal/Cutoff ratio < 0.79 is Nondetected Signal/Cutoff ratio 0.80-0.99 is Grayzone Signal/Cutoff ratio > 0.99 is Detected Supplemental assays are recommended if signal/cutoff ratio is >/=1.00. Signal/cutoff ratio result >/= 5.00 is 97% predictive of positivity for recombinant immunoblot assay (RIBA) and will be reported to the [place] Department of Public Health as required. Blood Venipuncture / Unknown 10/07/2022 1:38 PM TELEGRAPH REPEATER MECHANIC 10/07/2022 1:56 PM TELEGRAPH REPEATER MECHANIC us Heron Hamilton MD HEMATOLOGY ORDERABLES Final Resu lt [facility] [address] [place] [address], [place] from Last 3 Months or Most Recently Relevant to Health Maintenance Insurance MEDICAID [facility] [facility] Care Teams Computer Bookkeeper Relationship Specialty Start Date End Date Heron Hamilton MD PCP - General Family Medicine 11/22/19 Gerri Tamez APRN, FLOWER CUTTER [address] [place] [address] Nurse Practitioner Obstetrics & Gynecology 10/07/22
--- OUTSIDE RECORDS SUMMARY | 2024-12-22 14:44 | XMS_ITS ---
Author Organization [facility] Address [address] [place] [address] Phone Care Team Providers Care Laborer Tanbark Name Role Phone CASTILLO RIVAS, AMGED Primary Care Provider [phone] RON RIVAS, GABRILELA Young Unavailable [phone] Problems Includes: Active, inactive, and resolved Problems All Visits Onset Date Resolved Date Provider Condition S tatus Maria Teresa-manuel Classification Android Pelvis 05/12/2021 FRANCA MARIEE WHNP-BC Active Last Documented On 1 11:46AM ; [facility] Risk: Tobacco Use 05/12/2021 FRANCA MARIEE WHNP -BC Active Last Documented On 1 11:21AM ; [facility] Plan of Treatment Findings Encounter Date Ordered Clinical summary pro vided to patient PROBLEM VISIT with FRANCA MARIEE WHNP-BC 09/06/2023 Last Documented On 3 2:59PM ; [facility] Ordered Clinical summary pro vided to patient WELL WOMAN - ESTABLISHED PT with FRANCA MARIEE WHNP-BC 05/20/2022 Last Documented On 2 8:31AM ; [facility] Ordered Clinical summary pro vided to patient PROCEDURE OFFICE with FRANCA MARIEE WHNP-BC 06/09/2021 Last Documented On 1 1:15PM ; [facility] Ordered Clinical summary pro vided to patient WELL WOMAN - NEW PATIENT with FRANCA MARIEE WHNP-BC 05/12/2021 Last Documented On 1 11:46AM ; [facility] Instructions to patient Instructions for patient Tangela l for any palpable lumps Last Documented On 3 2:35PM ; [facility] Instructed to decrease carbo nation and caffeine Last Documented On 3 2:35PM ; [facility] Instructions For Patient: Mo nthly Self Breast Exam Last Documented On 3 2:35PM ; [facility] Instructions for patient : B reast Self Exam discussed Last Documented On 3 9:08AM ; [facility] Gardasil information given a nd series encouraged Series completed! Last Documented On 3 9:09AM ; [facility] Safe sex counseling Last Documented On 3 9:09AM ; [facility] Instructions for patient : B reast Self Exam discussed Last Documented On 2 8:13AM ; [facility] Gardasil information given a nd series encouraged Last Documented On 2 8:14AM ; [facility] Safe sex counseling Last Documented On 2 8:14AM ; [facility] Instructions for patient : B reast Self Exam discussed Last Documented On 1 11:15AM ; [facility] Intervention and counseling on cessation of tobacco use Last Documented On 1 11:23AM ; [facility] Gardasil information given a nd series encouraged Last Documented On 1 11:15AM ; [facility] Safe sex counseling Last Documented On 1 11:15AM ; [facility] Education and Decision Aids were provided during visit for: Smoking cessation advised Last Documented On 3 2:36PM ; [facility] Patient Education: Daily tangela cium and vitamin D Last Documented On 3 9:08AM ; [facility] Patient Education: weight be aring exercise Last Documented On 3 9:08AM ; [facility] Smoking cessation advised Last Documented On 3 9:11AM ; [facility] Patient Education: Daily tangela cium and vitamin D Last Documented On 2 8:13AM ; [facility] Patient Education: weight be aring exercise Last Documented On 2 8:13AM ; [facility] Patient Education: Daily tangela cium and vitamin D Last Documented On 1 11:15AM ; [facility] Patient Education: weight be aring exercise Last Documented On 1 11:15AM ; [facility] Smoking cessation advised Last Documented On 1 11:25AM ; [facility] control consent review ed and signed Last Documented On 1 11:43AM ; [facility] Assessments Includes: Assessments for all patient encounters Findings Encounter Date Fibrocystic disease of breast PROBLEM VISIT with FRANCA MARIEE NP-BC 09/06/2023 Last Documented On 3 2:59PM ; [facility] NORMAL FEMALE EXAM WELL WOMAN - ESTABLISHED PT w ith FRANCA MARIEE NP-BC 05/22/2023 Last Documented On 3 9:25AM ; [facility] NORMAL FEMALE EXAM WELL WOMAN - ESTABLISHED PT w ith FRANCA MARIEE NP-BC 05/20/2022 Last Documented On 2 8:31AM ; [facility] Low fat diet WELL WOMAN - NEW PATIENT with CA JAZMYNE MARIEE NP-BC 05/12/2021 Last Documented On 1 11:46AM ; [facility] NORMAL FEMALE EXAM WELL WOMAN - NEW PATIENT with FRANCA MARIEE NP-BC 05/12/2021 Last Documented On 1 11:46AM ; [facility] Instructions Includes: Instructions for all patient encounters Instructions to patient Instructions for patient Tangela l for any palpable lumps Last Documented On 3 2:35PM ; [facility] Instructed to decrease carbo nation and caffeine Last Documented On 3 2:35PM ; [facility] Instructions For Patient: Mo nthly Self Breast Exam Last Documented On 3 2:35PM ; [facility] Instructions for patient : B reast Self Exam discussed Last Documented On 3 9:08AM ; [facility] Gardasil information given a nd series encouraged Series completed! Last Documented On 3 9:09AM ; [facility] Safe sex counseling Last Documented On 3 9:09AM ; [facility] Instructions for patient : B reast Self Exam discussed Last Documented On 2 8:13AM ; [facility] Gardasil information given a nd series encouraged Last Documented On 2 8:14AM ; [facility] Safe sex counseling Last Documented On 2 8:14AM ; [facility] Instructions for patient : B reast Self Exam discussed Last Documented On 1 11:15AM ; [facility] Intervention and counseling on cessation of tobacco use Last Documented On 1 11:23AM ; [facility] Gardasil information given a nd series encouraged Last Documented On 1 11:15AM ; [facility] Safe sex counseling Last Documented On 1 11:15AM ; [facility] Education and Decision Aids were provided during visit for: Smoking cessation advised Last Documented On 3 2:36PM ; [facility] Patient Education: Daily tangela cium and vitamin D Last Documented On 3 9:08AM ; [facility] Patient Education: weight be aring exercise Last Documented On 3 9:08AM ; [facility] Smoking cessation advised Last Documented On 3 9:11AM ; [facility] Patient Education: Daily tangela cium and vitamin D Last Documented On 2 8:13AM ; [facility] Patient Education: weight be aring exercise Last Documented On 2 8:13AM ; [facility] Patient Education: Daily tangela cium and vitamin D Last Documented On 1 11:15AM ; [facility] Patient Education: weight be aring exercise Last Documented On 1 11:15AM ; [facility] Smoking cessation advised Last Documented On 1 11:25AM ; [facility] control consent review ed and signed Last Documented On 1 11:43AM ; [facility] Medical Equipment - Implanted Devices Includes: Current and historical Devices No Medical Equipment Recorded Medications Includes: Current and historical Medications Current Medications (continue as prescribed) Sronyx 0.1-20 MG-MCG Oral Tablet 05/22/2023 Provider : FRANCA ALICIA Diagnosis: One tablet daily Last Documented On 3 9:17AM By FRANCA STORY-BC ; [facility] Escitalopram Oxalate 10 MG Oral Tablet 05/18/2023 Pr ovider: MAGED CHONG MD Diagnosis: Last Documented On 05/22/2023 9:13AM By Tami KELLY ; [facility] Past Medications on file Sronyx 0.1-20 MG-MCG Oral Tablet 05/18/2023 - 05/22/2023 Provider: FRANCA MARIEE DISEASE MANAGEMENT NURSE-BC Diagnosis: One tablet daily Last Documented On 3 9:12AM By FRANCA ALICIA ; [facility] Sronyx 0.1-20 MG-MCG Oral Tablet 04/20/2023 - 05/18/2023 Provider: FRANCA MARIEE DISEASE MANAGEMENT NURSE-BC Diagnosis: One tablet daily Last Documented On 3 6:01AM By FRANCA ALICIA ; [facility] Aviane 0.1-20 MG-MCG Oral Tablet 05/20/2022 - 04/20/2023 Provider: FRANCA DON DISEASE MANAGEMENT NURSE-BC Diagnosis: One tablet daily Last Documented On 3 6:05AM By FRANCA ALICIA ; [facility] Aviane 0.1-20 MG-MCG Oral Tablet 06/09/2021 - 05/20/2022 Provider: FRANCA DON DISEASE MANAGEMENT NURSE-BC Diagnosis: One tablet daily Last Documented On 2 8:31AM By FRANCA ALICIA ; [facility] Aviane 0.1-20 MG-MCG Oral Tablet 05/12/2021 - 06/09/2021 Provider: FRANCA DON DISEASE MANAGEMENT NURSE-BC Diagnosis: One tablet daily Last Documented On 1 1:04PM By FRANCA ALICIA ; [facility] Medications Administered Includes: Administered Medications in patient's chart No Administered Medications Recorded Results Includes: Results from 12/22/2023 through 12/22/2024 No Results Recorded For Specified Dates History of Present Illness History of Present Illness not supported for this document type No History of Present Illness Recorded Social History Description Last Updated Not using alcohol 05/22/2023 Last Documented On 3 9:25AM ; [facility] Not using drugs 05/22/2023 Last Documented On 3 9:25AM ; [facility] Current smoker 05/22/2023 Last Documented On 3 9:25AM ; [facility] Smoking electronic cigarettes 05/22/2023 Last Documented On 3 9:25AM ; [facility] control is being practiced Sronyx 05/22/2023 Last Documented On 3 9:25AM ; [facility] Former smoker 05/20/2022 Last Documented On 2 8:31AM ; [facility] Age of 1st intercourse was was 15 2020 Last Documented On 1 1:15PM ; [facility] Has sex with males only 06/09/2021 Last Documented On 1 1:15PM ; [facility] Sexually active 06/09/2021 Last Documented On 1 1:15PM ; [facility] Smoking Status Unknown Medical History Includes: Medical History in patient's chart Description Last Updated LMP: 09/05/2023 09/06/2023 Last Documented On 3 2:59PM ; [facility] Last pap smear date 05/20/2022 05/22/2023 Last Documented On 3 9:25AM ; [facility] Contraception: Nexplanon, inserted iny , [address] Stokes 06/09/2021 Last Documented On 1 1:15PM ; [facility] Elective (s) None 06/09/2021 Last Documented On 1 1:15PM ; [facility] No previous STD 06/09/2021 Last Documented On 1 1:15PM ; [facility] No. of miscarriages: None 06/09/2021 Last Documented On 1 1:15PM ; [facility] No. of Pregnancies: None 06/09/2021 Last Documented On 1 1:15PM ; [facility] Previous live (s) None 06/09/2021 Last Documented On 1 1:15PM ; [facility] Previous premature delivery(s) None 05/30 Last Documented On 1 1:15PM ; [facility] Family History Includes: Family History in patient's chart Description Last Updated Family history reviewed - unchanged sinc e last visit 05/22/2023 Last Documented On 3 9:25AM ; [facility] Maternal history of Sexual Problems 04/29 Last Documented On 1 11:46AM ; [facility] Review of Systems Review of Systems not supported for this document type No Review of Systems Recorded Mental Status No Mental Status Recorded Functional Status No Functional Status Recorded Physical Exam Physical Exam not supported for this document type No Physical Exam Recorded Allergies Includes: Active, inactive, and resolved Allergies No Known Allergies Insurance Includes: Active Insurance Policies Plan Name Member ID Group # Subscriber Relationship Effect charity Dates 1 - [employer] [facility] [id number] SKY YUN Self Clinical Notes Includes: Signed Clinical Notes starting from 11/18/2022 No Clinical Notes Recorded
--- OUTSIDE RECORDS SUMMARY | 2024-12-22 14:44 | XMS_ITS | Referral Summary ---
Author Organization [address] Address [address] [place] [id number] Care Team Providers Care Corporate Receptionist Name Role Phone Heron Hamilton MD Primary Care Provider [phone] Allergies Active Allergy Reactions Criticality Noted Date Comments Venom-Honey Bee Itching,Swelling,Rash Medium Medications levonorgestreL-eth inyl estrad (LUTERA) 0.1-20 mg-mcg per tablet 10/06/2021 A ctive Active Problems Problem Noted Date Diagnosed Date Acute sinusitis 03/28/2019 Social History Tobacco Use Types Packs/Day Years Used Date Smoking Tobacco: Every Day Vaping Smokeless Tobacco: Never Personal Safety Answer Date Recorded Getting School Help Needed Not on file 12/30 Comments No Sex and Gender Information Value Date Recorded Sex Assigned at Not on file Legal Sex Female 1:13 PM CDT Gender Identity Not on file Sexual Orientation Not on file Last Filed Vital Signs Vital Sign Reading Time Taken Comments Blood Pressure 96/62 04/06/2022 3:00 PM CDT Pulse 69 04/06/2022 3:00 PM CDT Temperature 36.8 C (98.2 F) 04/06/2022 3:00 PM CDT Respiratory Rate 18 04/06/2022 3:00 PM CDT Oxygen Saturation 96% 04/06/2022 3:00 PM CDT Inhaled Oxygen Concentration - - Weight 46.3 kg (102 lb) 04/06/2022 3:00 PM CDT Height 144.8 cm (4' 9 ) 04/06/2022 3:00 PM CDT Body Mass Index 22.07 04/06/2022 3:00 PM CDT Plan of Treatment Not on file Insurance [facility] Care Teams Corporate Receptionist Relationship Specialty Start Date End Date Heron Hamilton MD [address] [address] PCP - General Family Medicine 07/20/21
--- OUTSIDE RECORDS SUMMARY | 2024-12-22 14:44 | XMS_ITS | Clinical Summary ---
Author Organization [facility] Address [address] [place] [address] Phone Care Team Providers Care Clinical Provider Trainer Name Role Phone CASTILLO RIVAS, MAGED Primary Care Provider [phone] RON RIVAS, GABRIELLA Young Unavailable [phone] Reason for Visit and Chief Complaint The Chief Complaint is: WWE. No concerns today. 1 new sexual partner Problems Includes: Problems addressed during this encounter and other active Problems All Visits Onset Date Resolved Date Provider Condition S bienvenidous Maria Teresa-manuel Classification Android Pelvis 05/12/2021 FRANCA MARIEE WHNP-BC Active Last Documented On 1 11:46AM ; [facility] Risk: Tobacco Use 05/12/2021 FRANCA MARIEE WHNP -BC Active Last Documented On 1 11:21AM ; [facility] Plan of Treatment Instructions to patient Instructions for patient : B reast Self Exam discussed Last Documented On 3 9:08AM ; [facility] Gardasil information given a nd series encouraged Series completed! Last Documented On 3 9:09AM ; [facility] Safe sex counseling Last Documented On 3 9:09AM ; [facility] Education and Decision Aids were provided during visit for: Patient Education: Daily tangela cium and vitamin D Last Documented On 3 9:08AM ; [facility] Patient Education: weight be aring exercise Last Documented On 3 9:08AM ; [facility] Smoking cessation advised Last Documented On 3 9:11AM ; [facility] Assessments Includes: Assessments from this encounter Findings - NORMAL FEMALE EXAM [Z01.419 - Encounter for gynecological examination (general) (routine) without abnormal findings] - Last Documented On 05/22/2023 9:25AM ; [facility] Instructions Includes: Instructions from this encounter Instructions to patient Instructions for patient : B reast Self Exam discussed Last Documented On 3 9:08AM ; [facility] Gardasil information given a nd series encouraged Series completed! Last Documented On 3 9:09AM ; [facility] Safe sex counseling Last Documented On 3 9:09AM ; [facility] Education and Decision Aids were provided during visit for: Patient Education: Daily tangela cium and vitamin D Last Documented On 3 9:08AM ; [facility] Patient Education: weight be aring exercise Last Documented On 3 9:08AM ; [facility] Smoking cessation advised Last Documented On 3 9:11AM ; [facility] Medical Equipment - Implanted Devices Includes: Current Devices No Medical Equipment Recorded Medications Includes: Medications discussed during this encounter and other current Medications New / Renewed during this visit FRANCA ALICIA on 05/22/2023 Sronyx 0.1-20 MG-MCG Oral Tablet Provider: FRANCA Young 28 day supply: 28 tablet, 11 refills Diagnosis: One tablet daily Pharmacy: [facility] [address], [address] - Last Documented On 3 9:17AM By FRANCA ALICIA ; [facility] Current Medications (continue as prescribed) Escitalopram Oxalate 10 MG Oral Tablet 05/18/2023 Pr ovider: MAGED HAMILTON MD Diagnosis: Last Documented On 05/22/2023 9:13AM By Tami KELLY ; [facility] Medications Administered Includes: Administered Medications from this encounter No Administered Medications Recorded Vital Signs Includes: Vital Signs from this encounter Vital Name 05/22/2023 09:13A Blood Pressure Sitting L 118/82 BP Cuff Size Regular Temp-Temporal 98.1 Height (in) 58.5 Weight (lb) 101 Body Mass Index 20.7 Body Surface Area 1.4 Last Documented: On 05/22/2023 9:15AM ; [facility] Results Includes: Results discussed during this encounter No Results Recorded For Specified Dates History of Present Illness Includes: History of Present Illness from this encounter BUTCH YUN is a 22 year old female. - Allergy list reviewed - Medication list reviewed - Primary Care Provider: Dr. Maged Hamilton Social History Description Last Updated Not using alcohol 05/22/2023 Last Documented On 3 9:25AM ; [facility] Not using drugs 05/22/2023 Last Documented On 3 9:25AM ; [facility] Current smoker 05/22/2023 Last Documented On 3 9:25AM ; [facility] Smoking electronic cigarettes 05/22/2023 Last Documented On 3 9:25AM ; [facility] control is being practiced Sronyx 05/22/2023 Last Documented On 3 9:25AM ; [facility] Age of 1st intercourse was was 15 2020 Last Documented On 3 9:08AM ; [facility] Has sex with males only 06/09/2021 Last Documented On 3 9:08AM ; [facility] Sexually active 06/09/2021 Last Documented On 3 9:08AM ; [facility] Smoking Status Unknown Procedures and Surgical History Includes: Procedures from this encounter Procedures Code Diagnosis Performing Provider Service L ocation Service Date low fat diet Last Documented On 3 9:09AM ; [facility] use of tobacco assessment performed 1000F Last Documented On 3 9:08AM ; [facility] review of medications documented 1160F Last Documented On 3 9:08AM ; [facility] history of cervical Pap smear 05/20/2022 92169 Last Documented On 3 9:09AM ; [facility] Chlamydia trachomatis culture was perfor med Last Documented On 3 9:09AM ; [facility] Neisseria gonorrhea culture was performe d Last Documented On 3 9:09AM ; [facility] Cervical Pap Smear performed Q0091 Last Documented On 3 9:09AM ; [facility] Medical History Includes: Medical History addressed during this encounter Description Last Updated LMP: 05/09/2023 05/22/2023 Last Documented On 3 9:25AM ; [facility] Last pap smear date 05/20/2022 05/22/2023 Last Documented On 3 9:25AM ; [facility] Contraception: Nexplanon, inserted inFebruary by Dr. Stokes 06/09/2021 Last Documented On 3 9:08AM ; [facility] Elective (s) None 06/09/2021 Last Documented On 3 9:08AM ; [facility] No previous STD 06/09/2021 Last Documented On 3 9:08AM ; [facility] No. of miscarriages: None 06/09/2021 Last Documented On 3 9:08AM ; [facility] No. of Pregnancies: None 06/09/2021 Last Documented On 3 9:08AM ; [facility] Previous live (s) None 06/09/2021 Last Documented On 3 9:08AM ; [facility] Previous premature delivery(s) None 05/30 Last Documented On 3 9:08AM ; [facility] Family History Includes: Family History addressed during this encounter Description Last Updated Family history reviewed - [facility] e last visit 05/22/2023 Last Documented On 3 9:25AM ; [facility] Maternal history of Sexual Problems 04/29 Last Documented On 3 9:08AM ; [facility] Review of Systems Includes: Review of Systems from this encounter Gastrointestinal: No pelvic pain. Genitourinary: No menorrhagia. No dysmenorrhea and no bleeding between periods. No vaginal discharge. Mental Status Includes: Mental Status from this encounter No Mental Status Recorded Functional Status Includes: Functional Status from this encounter No Functional Status Recorded Physical Exam Includes: Physical Exam from this encounter Allergies Includes: Active Allergies No Known Allergies Encounters Encounter Provider Location Date Check-In Time Check-Out Time Diagnosis [facility] FRANCA MARIEE [facility] 05/22/20 9:10AM 9:25AM Normal Female Exam Insurance Includes: Active Insurance Policies Plan Name Member ID Group # Subscriber Relationship Effect charity Dates 1 - [employer] [id number] SKY YUN Self Clinical Notes Includes: Clinical Notes from this encounter * Progress note Date Encounter Last Documented by 05/22/2023 [facility] - ESTABLISHED PT Last documented on 05/22/2023; 9:25 AM, FRANCA MARIEE [facility]; [facility] Active Problems & Conditions - Candice Classification Android Pelvis - Risk: Tobacco Use Chief Complaint The Chief Complaint is: WWE. No concerns today. 1 new sexual partner. History of Present Illness SKY YUN is a 22 year old female. - Allergy list reviewed - Medication list reviewed - Primary Care Provider: Dr. Maged Hamilton Current Medication - Escitalopram Oxalate 10 MG Oral Tablet 90 days, 0 refills - Sronyx 0.1-20 MG-MCG Oral Tablet One tablet daily, 28 days, 0 refills Past Medical/Surgical History Reported: LMP: 05/09/2023, Last pap smear date 05/20/2022, and Contraception: Nexplanon, inserted inFeb, [address] Stokes. Medical: No previous STD. : Previous premature delivery(s) None, having live (s) None, aborta including elective (s) None, No. of Pregnancies: None, and No. of miscarriages: None. Social History Tobacco use: Smoking electronic cigarettes. Alcohol: Not using alcohol. Drug Use: Not using drugs. Sexual: Sexually active age of 1st intercourse was was 15, has sex with males only, and control is being practiced Sronyx. Allergies - No Known Allergies Family History Family history reviewed - unchanged since last visit Maternal: Sexual Problems Review Of Systems Gastrointestinal: No pelvic pain. Genitourinary: No menorrhagia. No dysmenorrhea and no bleeding between periods. No vaginal discharge. Physical Findings - Vitals taken 05/22/2023 09:13 am BP-Sitting L 118/82 mmHg BP Cuff Size Regular Temp-Temporal 98.1 F Height 58.5 in Weight 101 lbs Body Mass Index 20.7 kg/m2 Body Surface Area 1.4 m2 Standard Measurements: - Patient was not observed to be obese. General Appearance: - Well developed. - Well nourished. - In no acute distress. Neck: Thyroid: - Showed no abnormalities. Lymph Nodes: - Supraclavicular lymph nodes were not enlarged. - Axillary lymph nodes were not enlarged. Breasts: Right Breast: - Nipple was normal. - No abnormal secretion. - No mass was found. - No tenderness. Left Breast: - Nipple was normal. - No abnormal secretion. - No mass was found. - No tenderness. Lungs: - Clear to auscultation. Cardiovascular: Heart Rate And Rhythm: - Normal. Murmurs: - No murmurs were heard. Back: - No right costovertebral angle tenderness. - No left costovertebral angle tenderness. Abdomen: Palpation: - Abdominal non-tender. - No mass was palpated in the abdomen. Liver: - Not enlarged. Spleen: - Not enlarged. Urinary System: Bladder: - Normal. - Not distended. - Did not have a mass. - Incontinence was not demonstrated. Genitalia: External: - Genitalia showed no abnormalities. Pelvic: - No ovarian mass. Vagina: - No vaginal discharge was observed. - No cystocele was observed. - No rectocele was observed. Cervix: - Showed no lesion. - Did not demonstrate pain elicited by motion. Uterus: - Not enlarged. - Not tender. Uterine Adnexae: - Uterine adnexa was not tender. Rectovaginal: - Tissue was normal. Psychiatric: Appearance: - Grooming was normal. Tests Pathology: Cytology: Cervical Pap Smear performed. Microbiology: Culture: Chlamydia trachomatis culture was performed. Neisseria gonorrhea culture was performed. Assessment - NORMAL FEMALE EXAM [Z01.419 - Encounter for gynecological examination (general) (routine) without abnormal findings] Previous Tests Pathology: Cytology: Cervical Pap smear 05/20/2022. Therapy - Low fat diet. Counseling/Education - Instructions for patient: Breast Self Exam discussed - Gardasil information given and series encouraged Series completed! - Safe sex counseling - Smoking cessation advised - Patient Education: Daily calcium and vitamin D - Patient Education: weight bearing exercise Plan StartCited - Other Follow-up 1 year/prn Sronyx 0.1-20 MG-MCG tablet One tablet daily, 28 days, 11 refills EndCited Practice Management Preventive medicine established patient checkup adult 18-39 years; Use of tobacco assessment performed Review of medications documented. Health Reminders - Assess BMI satisfied 05/22/2023. - Assess Tobacco Use satisfied 05/22/2023. - Chlamydia Infection Screening (if sexually active) satisfied 05/22/2023.
--- OUTSIDE RECORDS SUMMARY | 2024-12-22 14:44 | XMS_ITS ---
Care Plan - [facility] Created on: December 22, 2024 COURTSKY : 2000 Sex: Female Author Organization [facility] Address [address] [place] [address] Phone Care Team Providers Care Systems Testing Laboratory Technician Name Role Phone CASTILLO RIVAS, MAGED Primary Care Provider [phone] RON RIVAS, GABRIELLA C Unavailable [phone]
--- OUTSIDE RECORDS SUMMARY | 2024-12-22 14:44 | XMS_ITS | Encounter Summary ---
Author Organization [facility] Address [address] [place] [address] Phone Care Team Providers Care Exhauster Engineer Name Role Phone Heron Hamilton MD Primary Care Provider [phone] Gerri Tamez APRN, EXTRUSION ENGINEER Unavailable [phone] Reason for Visit * Reason Comments Medication Refill Encounter Details Date Type Department Care Team (Late st Contact Info) Description 08/14/2023 Refill [facility] - Family Medicine [facility] [address] [place] [address] Heron Hamilton MD [address] [place] [address] Medication Refill Social History Tobacco Use Types Packs/Day Years Used Date Smoking Tobacco: Never Smokeless Tobacco: Never Alcohol Use Standard Drinks/Week Comments Never 0 (1 standard drink = 0.6 oz pur e alcohol) AUDIT-C Answer Date Recorded Frequency of Alcohol Consumption Never 03/28/2019 Average Number of Drinks Not on file 019 Frequency of Binge Drinking Not on file 03/01 PHQ-2 Answer Date Recorded Total Score - Questions 1-9 0 06/01 Education Answer Date Recorded What is the [...] Telephone Encounter - Amber Mayer RN - 08/15/2023 8:59 AM CDT Medication failed the protocol, provider to review and approve the medication order if appropriate. Requested Prescriptions Pending Prescriptions Disp Refills escitalopram (LEXAPRO) 10 MG Tablet [Pharmacy Med Name: ESCITALOPRAM 10 MG TABLET] 90 Tablet 1 Sig: TAKE 1 TABLET BY MOUTH EVERY DAY SSRI (6 Month Refill Only) Protocol Failed - 08/14/2023 6:02 PM Failed - Patient has established therapy with SSRI for at least 6 months Passed - No test in the past 12 months or most recent test was negative Passed - No active on record Passed - Visit with relevant provider in past 6 months or upcoming 90 days Recent Visits Date Type Provider Dept 06/29/23 Office Visit Heron Hamilton MD [facility] 05/18/23 Office Visit Heron Hamilton MD [facility] Showing recent visits within past 182 days and meeting all other requirements Future Appointments Date Type Provider Dept 11/02/23 Appointment Heron Hamilton MD [facility] Showing future appointments within next 90 days and meeting all other requirements Passed - Has an encounter in the past 6 months with a depression, anxiety, adjustment disorder, OCD, or PTSD visit diagnosis documented in this encounter Plan of Treatment Upcoming Encounters Date Type Department Care Team (Late st Contact Info) Description 12/23/2024 1:45 PM HEAD ATHLETIC TRAINER/STRENGTH COACH Office Visit [facility] - Family Medicine - [address] [place] [address] Katharina Ornelas, COMPANY MARKER, EXTRUSION ENGINEER [address] [place] [address] documented as of this encounter Visit Diagnoses Diagnosis Anxiety Anxiety state, unspecified documented in this encounter Additional Health Concerns Assessment Noted Time PHQ-9 Depression Total Score: 0 06/29/20 23 5:24 PM CDT documented as of this encounter Care Teams Exhauster Engineer Relationship Specialty Start Date End Date Heron Hamilton MD PCP - General Family Medicine 11/22/19 Gerri Tamez APRN, EXTRUSION ENGINEER [address] [place] [id number] Nurse Practitioner Obstetrics & Gynecology 10/07/22 documented as of this encounter
--- OUTSIDE RECORDS SUMMARY | 2024-12-22 14:44 | XMS_ITS | Clinical Summary ---
Author Organization [facility] Address [address] [place] [address] Phone Care Team Providers Care Correctional Cook Name Role Phone MAGED CHONG MD Primary Care Provider [phone] RON RIVAS, GABRIELLA Young Unavailable [phone] Reason for Visit and Chief Complaint The Chief Complaint is: Patient is here for removal of Nexplanon Problems Includes: Problems addressed during this encounter and other active Problems All Visits Onset Date Resolved Date Provider Condition S bienvenidous Candice Classification Android Pelvis 05/12/2021 FRANCA DONNP-BC Active Last Documented On 1 11:46AM ; [facility] Risk: Tobacco Use 05/12/2021 FRANCA DONNP -BC Active Last Documented On 1 11:21AM ; [facility] Plan of Treatment - Clinical summary provided to patient - Last Documented On 06/09/2021 1:15PM ; [facility] Pending Tests Order Diagnosis Results Due Ordering Provider In office procedures - OB Implanon Removal Enctr srvlnc implantable subdermal contraceptive 06/23/21 FRANCA DONNP-BC Last Documented On 1 1:00PM ; [facility] Assessments Includes: Assessments from this encounter No Assessments Recorded Medical Equipment - Implanted Devices Includes: Current Devices No Medical Equipment Recorded Medications Includes: Medications discussed during this encounter and other current Medications New / Renewed during this visit FRANCA STORY-BC on 06/09/2021 Aviane 0.1-20 MG-MCG Oral Tablet Provider: FRANCA Young 30 day supply: 30 tablet, 11 refills Diagnosis: One tablet daily Pharmacy: [facility] [address], [id number] - Last Documented On 2 8:31AM By FRANCA ALICIA ; [facility] Current Medications (continue as prescribed) Sronyx 0.1-20 MG-MCG Oral Tablet 05/22/2023 Provider : FRANCA ALICIA Diagnosis: One tablet daily Last Documented On 3 9:17AM By FRANCA ALICIA ; [facility] Escitalopram Oxalate 10 MG Oral Tablet 05/18/2023 Pr ovider: MAGED CHONG MD Diagnosis: Last Documented On 05/22/2023 9:13AM By Tami KELLY ; [facility] Medications Administered Includes: Administered Medications from this encounter No Administered Medications Recorded Vital Signs Includes: Vital Signs from this encounter Vital Name 06/09/2021 12:56P Blood Pressure Sitting L 90/50 BP Cuff Size Regular Temp-Oral (F) 98.2 Height (in) 58.5 Weight (lb) 99 Body Mass Index (kg/m2) 20.3 Body Surface Area (m2) 1.4 Last Documented: On 06/09/2021 1:07PM ; [facility] Results Includes: Results discussed during this encounter No Results Recorded For Specified Dates History of Present Illness Includes: History of Present Illness from this encounter BUTCH YUN is a 20 year old female. - Allergy list reviewed - Medication reconciliation performed - Primary Care Provider: Dr. Maged Chong Social History Description Last Updated Age of 1st intercourse was was 15 2020 Last Documented On 1 1:15PM ; [facility] Alcohol use 06/09/2021 Last Documented On 1 1:15PM ; [facility] Does not have anal sex 06/09/2021 Last Documented On 1 1:15PM ; [facility] Has not used injectable drugs 06/09/2021 Last Documented On 1 1:15PM ; [facility] Has sex with males only 06/09/2021 Last Documented On 1 1:15PM ; [facility] Have you ever had sex (vagin al or penis in anus or rectum)? vaginal, yes, anal sex no 06/09/2021 Last Documented On 1 1:15PM ; [facility] In monogamous relationship 06/09/2021 Last Documented On 1 1:15PM ; [facility] No consumption of alcohol 06/09/2021 Last Documented On 1 1:15PM ; [facility] No drug use by a sexual partner 06/09/20 Last Documented On 1 1:15PM ; [facility] Not using drugs 06/09/2021 Last Documented On 1 1:15PM ; [facility] Partner has not had a STD in the past ye ar 06/09/2021 Last Documented On 1 1:15PM ; [facility] Patient does not report having sex when she didn't want to 06/09/2021 Last Documented On 1 1:15PM ; [facility] Patient has not had sex unde r the influence of alcohol or drugs in the last year 06/09/2021 Last Documented On 1 1:15PM ; [facility] Sexual partner has not had o ther partners while in relationship with patient 06/09/2021 Last Documented On 1 1:15PM ; [facility] Sexual partner has not had sex with pros titutes 06/09/2021 Last Documented On 1 1:15PM ; [facility] Sexually active 06/09/2021 Last Documented On 1 1:15PM ; [facility] Sexually active with 1 partners in the l ast year 06/09/2021 Last Documented On 1 1:15PM ; [facility] Smoking electronic cigarettes 06/09/2021 Last Documented On 1 1:15PM ; [facility] Smoking Status Unknown Procedures and Surgical History Includes: Procedures from this encounter Procedures Code Diagnosis Performing Provider Service L ocation Service Date use of tobacco assessment performed 1000F Last Documented On 1 1:05PM ; [facility] review of medications documented 1160F Last Documented On 1 1:05PM ; [facility] Hormone implant - removal, l eft arm Area was cleaned with alcohol. 1 cc of Lidocaine 1 % plus epinephrine was injected underneath the tip of the Nexplanon nico that is closest to the elbow. I pressed down on the end of the implant closest to the axilla and with a 10 blade made a 0.3 cm incision parallel to Nexplanon nico. Nexplanon was gently pushed toward the incision until the tip was visible. The implant was grasped with forceps and gently pulled out. Nexplanon removed without difficulty. Steri-strip applied to the area along with a pressure bandage with sterile gauze. Patient instructed in wound care and signs of infection reviewed Last Documented On 12:55PM ; [facility] test was negative Last Documented On 12:54PM ; [facility] Medical History Includes: Medical History addressed during this encounter Description Last Updated An HIV test was performed 06/09/2021 Last Documented On 1:15PM ; [facility] Contraception: Nexplanon, inserted inMay , [address] Stokes 06/09/2021 Last Documented On 1 1:15PM ; [facility] Elective (s) None 06/09/2021 Last Documented On 1 1:15PM ; [facility] Exercise 06/09/2021 Last Documented On 1 1:15PM ; [facility] LMP: 05/05/2021 06/09/2021 Last Documented On 1 1:15PM ; [facility] No previous STD 06/09/2021 Last Documented On 1 1:15PM ; [facility] No. of miscarriages: None 06/09/2021 Last Documented On 1 1:15PM ; [facility] No. of Pregnancies: None 06/09/2021 Last Documented On 1 1:15PM ; [facility] Previous live (s) None 06/09/2021 Last Documented On 1 1:15PM ; [facility] Previous premature delivery(s) None 05/30 Last Documented On 1 1:15PM ; [facility] Subdermal implant 06/09/2021 Last Documented On 1 1:15PM ; [facility] Family History Includes: Family History addressed during this encounter Description Last Updated Maternal history of Sexual Problems 04/29 Last Documented On 1 12:56PM ; [facility] Review of Systems Includes: Review of Systems from this encounter No Review of Systems Recorded Mental Status Includes: Mental Status from this encounter No Mental Status Recorded Functional Status Includes: Functional Status from this encounter No Functional Status Recorded Physical Exam Includes: Physical Exam from this encounter Allergies Includes: Active Allergies No Known Allergies Encounters Encounter Provider Location Date Check-In Time Check- Out Time Diagnosis PROCEDURE OFFICE FRANCA MARIEE [facility] 1 12:48PM 1:18PM Insurance Includes: Active Insurance Policies Plan Name Member ID Group # Subscriber Relationship Effect charity Dates 1 - [employer] [facility] [id number] SKY YUN Self Clinical Notes Includes: Clinical Notes from this encounter No Clinical Notes Recorded
--- OUTSIDE RECORDS SUMMARY | 2024-12-22 14:44 | XMS_ITS | Continuity of Care Document ---
Author Organization [facility] Address [address] [place] [address] Phone Care Team Providers Care Sales Project Administrator Name Role Phone Maikel Pardo MD Unavailable Unavailable Allergies, Adverse Reactions, Alerts Substance Reaction Status Criticality No Known Allergies Active No Inform ation Procedures Procedure Date OFFICE/OUTPATIENT VISIT, NEW Alcohol and/or drug screening URINE TEST, BY VISUAL COLOR CO MPARISON METHODS Urinalysis, Auto, w/o Scope Advance Directives Directive Yes / No Effective Date File Name No Information Encounters Encounter Description Practice Location Reason(s) For Visit Diagnoses Date Provider Providers Copied on Encounter [facility], [address], [place], [place], [id number] , [place] tel: [phone] Urgent Care No Information [address], [place], [place], [id number] , [place]. tel: [phone] OFFICE/OUTPA TIENT VISIT, NEW [facility], [address], [place], [place], [id number] , [place] tel: [phone] Urgent Care blood work (chief complaint) Body mass index (BMI) 22.0-22.9, adultEncounter for screening for infections with a predominantly sexual mode of transmissionEncounter for screening for HIVEncounter for screening for other disorderEncounter for screening, unspecified [address], [place], [place], [id number] , [place]. tel: [phone] Referring Provider: Maikel Pardo, [address], [place], [address] . tel:[phone] Family History Family Member Type Diagnosis Age At Onset No Information Payers Payer name Insurance type Covered alliance party ID Authorferoza tiskylar(s) No Information Social History Type Description Quantity Date Captured Comments Alcohol Use Details Unknown Caffeine Use Details Unknown Tobacco Use Status No Information Smoking Status No Information Sex Female Chief Complaint And Reason For Visit No Information Reason For Referral Reason For Referral No Information Plan Of Treatment Date Type Action Status Nutrition Recommendation Nutrition therap y completed History Of Present Illness Encounter Date Complaint History Of Prese nt Illness blood work 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 Does not need physical exam today. Doing well without issues or concerns.Denies fever, chills, myalgias, fatigue, headache, rhinorrhea, sinus congestion, sore throat, cough, dyspnea, abd pain, nausea, emesis, diarrhea, loss of smell or taste, or known COVID exposure.Physical Exam:General: NAD. Awake, alert, conversant, cooperative, appropriate, good eye contact, intact insight and memory.Skin: No rash or skin lesions noted on exposed skin.HEENT: EOMI grossly, conjunctiva and sclera clear.Neck: Good ROM noted passively.CV: RRR without murmur.Lungs: Clear bilat without rales, rhonchi, wheeze. No respiratory distress.Extremities: Good ROM noted passively, bears weight well, gait normal. Functional Status Date Functional Assessmen t No Information Instructions Date Instruction Additional Infor isac Prescribed activity/ exercise education Related to Body mass index [BMI] 22.0-22.9, adult Assessments Type Assessment Date No Information Patient Care Teams Name Effective Dates (start - stop) Status Members No Information
--- OUTSIDE RECORDS SUMMARY | 2024-12-22 14:44 | XMS_ITS | Clinical Summary ---
Author Organization [facility] Address [address] [place] [address] Phone Care Team Providers Care Financial Reporting Consultant Name Role Phone CASTILLO RIVAS, MAGED Primary Care Provider [phone] RON RIVAS, GABRIELLA Young Unavailable [phone] Reason for Visit and Chief Complaint The Chief Complaint is: pt c/o right breast lump the past week or two Problems Includes: Problems addressed during this encounter and other active Problems All Visits Onset Date Resolved Date Provider Condition S kristin Harvey Classification Android Pelvis 05/12/2021 FRANCA MARIEE WHNP-BC Active Last Documented On 1 11:46AM ; [facility] Risk: Tobacco Use 05/12/2021 FRANCA MARIEE WHNP -BC Active Last Documented On 1 11:21AM ; [facility] Plan of Treatment - Clinical summary provided to patient - Last Documented On 09/06/2023 2:59PM ; [facility] Instructions to patient Instructions for patient Jose Alberto l for any palpable lumps Last Documented On 3 2:35PM ; [facility] Instructed to decrease carbo [place] and caffeine Last Documented On 3 2:35PM ; [facility] Instructions For Patient: Mo nthly Self Breast Exam Last Documented On 3 2:35PM ; [facility] Education and Decision Aids were provided during visit for: Smoking cessation advised Last Documented On 3 2:36PM ; [facility] Assessments Includes: Assessments from this encounter Findings - Fibrocystic disease of breast [N60.11 - Diffuse cystic mastopathy of right breast] - Last Documented On 09/06/2023 2:59PM ; [facility] Instructions Includes: Instructions from this encounter Instructions to patient Instructions for patient Jose Alberto l for any palpable lumps Last Documented On 3 2:35PM ; [facility] Instructed to decrease carbo [place] and caffeine Last Documented On 3 2:35PM ; [facility] Instructions For Patient: Mo nthly Self Breast Exam Last Documented On 3 2:35PM ; [facility] Education and Decision Aids were provided during visit for: Smoking cessation advised Last Documented On 3 2:36PM ; [facility] Medical Equipment - Implanted Devices Includes: Current Devices No Medical Equipment Recorded Medications Includes: Medications discussed during this encounter and other current Medications Current Medications (continue as prescribed) Sronyx 0.1-20 MG-MCG Oral Tablet 05/22/2023 Provider : FRANCA ALICIA Diagnosis: One tablet daily Last Documented On 3 9:17AM By FRANCA ALICIA ; [facility] Escitalopram Oxalate 10 MG Oral Tablet 05/18/2023 Pr ovider: MAGED CHONG MD Diagnosis: Last Documented On 05/22/2023 9:13AM By Tami KELLY ; [facility] Medications Administered Includes: Administered Medications from this encounter No Administered Medications Recorded Vital Signs Includes: Vital Signs from this encounter Vital Name 09/06/2023 02:58P Blood Pressure Sitting (mmHg) 112/63 Temp-Oral (F) 98.4 Height (in) 58.5 Weight (lb) 108 Body Mass Index 22.2 Body Surface Area 1.4 Last Documented: On 09/06/2023 2:59PM ; [facility] Results Includes: Results discussed during this encounter No Results Recorded For Specified Dates History of Present Illness Includes: History of Present Illness from this encounter No History of Present Illness Recorded Social History Description Last Updated Not using alcohol 05/22/2023 Last Documented On 3 2:32PM ; [facility] Not using drugs 05/22/2023 Last Documented On 3 2:32PM ; [facility] Current smoker 05/22/2023 Last Documented On 3 2:32PM ; [facility] Smoking electronic cigarettes 05/22/2023 Last Documented On 3 2:32PM ; [facility] control is being practiced Sronyx 05/22/2023 Last Documented On 3 2:32PM ; [facility] Former smoker 05/20/2022 Last Documented On 3 2:32PM ; [facility] Age of 1st intercourse was was 15 2020 Last Documented On 3 2:32PM ; [facility] Has sex with males only 06/09/2021 Last Documented On 3 2:32PM ; [facility] Sexually active 06/09/2021 Last Documented On 3 2:32PM ; [facility] Smoking Status Unknown Procedures and Surgical History Includes: Procedures from this encounter Procedures Code Diagnosis Performing Provider Service L ocation Service Date history of cervical Pap smear 05/22/2023 Normal [id number] Last Documented On 3 2:52PM ; [facility] Medical History Includes: Medical History addressed during this encounter Description Last Updated LMP: 09/05/2023 09/06/2023 Last Documented On 3 2:59PM ; [facility] Elective (s) None 06/09/2021 Last Documented On 3 2:32PM ; [facility] No previous STD 06/09/2021 Last Documented On 3 2:32PM ; [facility] No. of miscarriages: None 06/09/2021 Last Documented On 3 2:32PM ; [facility] No. of Pregnancies: None 06/09/2021 Last Documented On 3 2:32PM ; [facility] Previous live (s) None 06/09/2021 Last Documented On 3 2:32PM ; [facility] Previous premature delivery(s) None 05/30 Last Documented On 3 2:32PM ; [facility] Family History Includes: Family History addressed during this encounter Description Last Updated Family history reviewed - unchanged [facility] last visit 05/22/2023 Last Documented On 3 2:32PM ; [facility] Maternal history of Sexual Problems 04/29 Last Documented On 3 2:32PM ; [facility] Review of Systems Includes: Review of Systems from this encounter Systemic: Not feeling poorly (malaise). No fever. Neck: No neck stiffness and no lump or swelling in the neck. Breasts: Right breast symptoms, breast lump in the right breast, and painful. No nipple discharge, no inversion of the nipple, no reddening of the breast, no breast swelling, no breast warmth, and no itching of breast. Pain in right breast. No cracks on nipple(s), no bleeding of nipple(s), no engorgement of breast, no mammogram concerns, and patient performs self breast exams. Cardiovascular: No chest pain or discomfort. Pulmonary: No cough. Musculoskeletal: No muscle aches. Neurological: No motor disturbances and no sensory disturbances. Skin: No skin lesions. Mental Status Includes: Mental Status from this encounter No Mental Status Recorded Functional Status Includes: Functional Status from this encounter No Functional Status Recorded Physical Exam Includes: Physical Exam from this encounter Allergies Includes: Active Allergies No Known Allergies Encounters Encounter Provider Location Date Check-In Time Check-Out Time Diagnosis PROBLEM VISIT FRANCA ALICIA [facility] 09/06/20 23 2:28PM 2:46PM Breast Fibrocystic Disease Insurance Includes: Active Insurance Policies Plan Name Member ID Group # Subscriber Relationship Effect charity Dates 1 - AETNA [facility] [id number] SKY YUN Self Clinical Notes Includes: Clinical Notes from this encounter * Progress note Date Encounter Last Documented by 09/06/2023 PROBLEM VISIT Last documented on 09/06/2023; 2:59 PM, FRANCA ALICIA; [facility] Active Problems & Conditions - Morel-manuel Classification Android Pelvis - Risk: Tobacco Use Chief Complaint The Chief Complaint is: Pt c/o right breast lump the past week or two. Current Medication - Escitalopram Oxalate 10 MG Oral Tablet 90 days, 0 refills - Sronyx 0.1-20 MG-MCG Oral Tablet One tablet daily, 28 days, 11 refills - Vitamin E 400 IU BID PRN Past Medical/Surgical History Reported: LMP: 09/05/2023. Medical: No previous STD. : Previous premature delivery(s) None, having live (s) None, aborta including elective (s) None, No. of Pregnancies: None, and No. of miscarriages: None. Social History Tobacco use: Smoking electronic cigarettes and former smoker. Alcohol: Not using alcohol. Drug Use: Not using drugs. Sexual: Sexually active age of 1st intercourse was was 15, has sex with males only, and control is being practiced Sronyx. Allergies - No Known Allergies Family History Family history reviewed - unchanged since last visit Maternal: Sexual Problems Review Of Systems Systemic: Not feeling poorly (malaise). No fever. Neck: No neck stiffness and no lump or swelling in the neck. Breasts: Right breast symptoms, breast lump in the right breast, and painful. No nipple discharge, no inversion of the nipple, no reddening of the breast, no breast swelling, no breast warmth, and no itching of breast. Pain in right breast. No cracks on nipple(s), no bleeding of nipple(s), no engorgement of breast, no mammogram concerns, and patient performs self breast exams. Cardiovascular: No chest pain or discomfort. Pulmonary: No cough. Musculoskeletal: No muscle aches. Neurological: No motor disturbances and no sensory disturbances. Skin: No skin lesions. Physical Findings - Vitals taken 09/06/2023 02:58 pm BP-Sitting 112/63 mmHg Temp-Oral 98.4 F Height 58.5 in Weight 108 lbs Body Mass Index 22.2 kg/m2 Body Surface Area 1.4 m2 General Appearance: - Well developed. - Well nourished. - In no acute distress. Neck: Thyroid: - Showed no abnormalities. Lymph Nodes: - Supraclavicular lymph nodes were not enlarged. - Axillary lymph nodes were not enlarged. Breasts: General/bilateral: - Diffuse fibrous tissue in the breast(s). Right Breast: - Nipple was normal. - No abnormal secretion. - No mass was found. - No tenderness. Left Breast: - Nipple was normal. - No abnormal secretion. - No mass was found. - No tenderness. Assessment - Fibrocystic disease of breast [N60.11 - Diffuse cystic mastopathy of right breast] Previous Tests Pathology: Cytology: Cervical Pap smear 05/22/2023 Normal. Counseling/Education - Instructions for patient Call for any palpable lumps - Instructions For Patient: Monthly Self Breast Exam - Instructed to decrease carbonation and caffeine - Smoking cessation advised Discussed Handout on Fibrocystic breast tissue given and d/w pt. in detail. I spent 20 minutes in caring for this pt. today. Please see details of care in the notes above. Plan StartCited - Other Follow-up 05-07-24 wwe as scheduled/prn EndCited - Clinical summary provided to patient Health Reminders - Smoking & Tobacco Cessation Intervention and Counseling satisfied 09/06/2023.
--- OUTSIDE RECORDS SUMMARY | 2024-12-22 14:44 | XMS_ITS | Clinical Summary ---
Author Organization [facility] Address [address] [place] [address] Phone Care Team Providers Care Manager Medical Device Name Role Phone CASTILLO RIVAS, MAGED Primary Care Provider [phone] RON RIVAS, GABRIELLA Young Unavailable [phone] Reason for Visit and Chief Complaint * PHONE CALL Problems Includes: Problems addressed during this encounter and other active Problems All Visits Onset Date Resolved Date Provider Condition S bienvenidous Maria Teresa-manuel Classification Android Pelvis 05/12/2021 FRANCA MARIEE LILLIE-JADEN Active Last Documented On 1 11:46AM ; [facility] Risk: Tobacco Use 05/12/2021 FRANCA MARIEE LILLIE -BC Active Last Documented On 1 11:21AM ; [facility] Plan of Treatment No Plan of Treatment Recorded Assessments Includes: Assessments from this encounter No Assessments Recorded Medical Equipment - Implanted Devices Includes: Current Devices No Medical Equipment Recorded Medications Includes: Medications discussed during this encounter and other current Medications Current Medications (continue as prescribed) Sronyx 0.1-20 MG-MCG Oral Tablet 05/22/2023 Provider : FRANCA STORY-BC Diagnosis: One tablet daily Last Documented On 3 9:17AM By FRANCA ALICIA ; [facility] Escitalopram Oxalate 10 MG Oral Tablet 05/18/2023 Pr ovider: MAGED CHONG MD Diagnosis: Last Documented On 05/22/2023 9:13AM By Tami KELLY ; [facility] Medications Administered Includes: Administered Medications from this encounter No Administered Medications Recorded Vital Signs Includes: Vital Signs from this encounter Vital Name 09/06/2023 02:33P Blood Pressure Sitting (mmHg) 112/63 Height (in) 58.5 Last Documented: On 09/06/2023 2:36PM ; [facility] Results Includes: Results discussed during this encounter No Results Recorded For Specified Dates History of Present Illness Includes: History of Present Illness from this encounter No History of Present Illness Recorded Social History No Social History Recorded - Smoking Status Unknown Medical History Includes: Medical History addressed during this encounter No Medical History Recorded Family History Includes: Family History addressed during this encounter No Family History Recorded Review of Systems Includes: Review of Systems from this encounter No Review of Systems Recorded Mental Status Includes: Mental Status from this encounter No Mental Status Recorded Functional Status Includes: Functional Status from this encounter No Functional Status Recorded Physical Exam Includes: Physical Exam from this encounter No Physical Exam Recorded Allergies Includes: Active Allergies No Known Allergies Encounters Encounter Provider Location Date Check-In Time Check-Out Time Diagnosis * PHONE CALL GABRIELLA VELASQUEZ MD [facility] 3 2:20PM 11:59PM Insurance Includes: Active Insurance Policies Plan Name Member ID Group # Subscriber Relationship Effect charity Dates 1 - AETNA [facility] [id number] [address] Self Clinical Notes Includes: Clinical Notes from this encounter No Clinical Notes Recorded
--- OUTSIDE RECORDS SUMMARY | 2024-12-22 14:44 | XMS_ITS | Clinical Summary ---
Author Organization [facility] Address [address] [place] [address] Phone Care Team Providers Care Chief Technologist Name Role Phone CASTILLO RIVAS, MAGED Primary Care Provider [phone] RON RIVAS, GABRIELLA Young Unavailable [phone] Reason for Visit and Chief Complaint * PHONE CALL Problems Includes: Problems addressed during this encounter and other active Problems All Visits Onset Date Resolved Date Provider Condition S bienvenidous Maria Teresa-manuel Classification Android Pelvis 05/12/2021 FRANCA MARIEE LILLIE-JADEN Active Last Documented On 1 11:46AM ; [facility] Risk: Tobacco Use 05/12/2021 FRANCA MARIEE LILLIE -BC Active Last Documented On 1 11:21AM ; [facility] Plan of Treatment No Plan of Treatment [...] On 3 9:17AM By FRANCA ALICIA ; [facility] Escitalopram Oxalate 10 MG Oral Tablet 05/18/2023 Pr ovider: MAGED CHONG MD Diagnosis: Last Documented On 05/22/2023 9:13AM By Tami KELLY ; [facility] Medications Administered Includes: Administered Medications from this encounter No Administered Medications Recorded Vital Signs Includes: Vital Signs from this encounter Vital Name 09/06/2023 02:33P Blood Pressure Sitting (mmHg) 112/63 Height (in) 58.5 Last Documented: On 09/06/2023 2:36PM ; [facility] Results Includes: Results discussed [...] Diagnosis * PHONE CALL GABRIELLA VELASQUEZ MD [facility] 3 2:20PM 11:59PM Insurance Includes: Active Insurance Policies Plan Name Member ID Group # Subscriber Relationship Effect charity Dates 1 - AETNA [facility] [id number] [address] Self Clinical Notes Includes: Clinical Notes from this encounter No Clinical Notes Recorded
--- OUTSIDE RECORDS SUMMARY | 2024-12-22 14:44 | XMS_ITS | Clinical Summary ---
Author Organization [address] Address [address] [place] [address] Care Team Providers Care Avionics Integration Engineer Name Role Phone Heron Hamilton MD Primary Care Provider [phone] Allergies Active Allergy Reactions Criticality Noted Date [...] on file Sexual Orientation Not on file Obstetrics History Last Filed Vital Signs Vital Sign Reading [...] 04/06/2022 3:00 PM CDT Plan of Treatment Health Maintenance Due Date Last Done Comments Cervical Cancer Screening 1999 Depression Screening 1999 Hepatitis C Screening 1999 Regular Well Visit/Exam 18-64 2017 HPV Vaccines (2 - 3-dose series) 08/14/2017 07/17/20 17 Pneumococcal vaccine <65 (1 of 2 - PCV) 2018 DTaP/Tdap/Td Vaccine (7 - Td or Tdap) 08/02/2022 08/02/2012, 10/05/2004, 07/30/2001, Additional history exists Covid-19 Vaccine ( - 2023-2 5 season) 2024 12/21/2021, 06/23/2021 Influenza Vaccine (#1) 2024 , 07/27/2020, 08/20/2014 Hepatitis B Screening Completed 12/14/2000 , 04/25/2000, 1999 Varicella Vaccines Completed 08/02/2012, 12/14/2000 Insurance [facility] Care Teams Avionics Integration Engineer Relationship Specialty Start Date End Date Heron Hamilton MD [address] [address] PCP - General Family Medicine 07/20/21
--- OUTSIDE RECORDS SUMMARY | 2024-12-22 14:44 | XMS_ITS | Clinical Summary ---
Author Organization [facility] Address [address] [place] [address] Phone Care Team Providers Care Night Time Babysitter Name Role Phone CASTILLO RIVAS, MAGED Primary Care Provider [phone] RON RIVAS, GABRIELLA Young Unavailable [phone] Reason for Visit and Chief Complaint The Chief Complaint is: WWE, no c/o, no new partners Problems Includes: Problems addressed during this encounter and other active Problems All Visits Onset Date Resolved Date Provider Condition S kristin Harvey Classification Android Pelvis 05/12/2021 FRANCA MARIEE WHNP-BC Active Last Documented On 1 11:46AM ; [facility] Risk: Tobacco Use 05/12/2021 FRANCA MARIEE WHNP -BC Active Last Documented On 1 11:21AM ; [facility] Plan of Treatment - Clinical summary provided to patient - Last Documented On 05/20/2022 8:31AM ; [facility] Instructions to patient Instructions for patient : B reast Self Exam discussed Last Documented On 2 8:13AM ; [facility] Gardasil information given a nd series encouraged Last Documented On 2 8:14AM ; [facility] Safe sex counseling Last Documented On 2 8:14AM ; [facility] Education and Decision Aids were provided during visit for: Patient Education: Daily tangela cium and vitamin D Last Documented On 2 8:13AM ; [facility] Patient Education: weight be aring exercise Last Documented On 2 8:13AM ; [facility] Assessments Includes: Assessments from this encounter Findings - NORMAL FEMALE EXAM [Z01.419 - Encounter for gynecological examination (general) (routine) without abnormal findings] - Last Documented On 05/20/2022 8:31AM ; [facility] Instructions Includes: Instructions from this encounter Instructions to patient Instructions for patient : B reast Self Exam discussed Last Documented On 2 8:13AM ; [facility] Gardasil information given a nd series encouraged Last Documented On 2 8:14AM ; [facility] Safe sex counseling Last Documented On 2 8:14AM ; [facility] Education and Decision Aids were provided during visit for: Patient Education: Daily tangela cium and vitamin D Last Documented On 2 8:13AM ; [facility] Patient Education: weight be aring exercise Last Documented On 2 8:13AM ; [facility] Medical Equipment - Implanted Devices Includes: Current Devices No Medical Equipment Recorded Medications Includes: Medications discussed during this encounter and other current Medications New / Renewed during this visit FRANCA ALICIA on 05/20/2022 Aviane 0.1-20 MG-MCG Oral Tablet Provider: FRANCA Young 30 day supply: 30 tablet, 11 refills Diagnosis: One tablet daily Pharmacy: [facility] [address], [address] - Last Documented On 3 6:05AM By FRANCA ALICIA ; [facility] Current Medications (continue as prescribed) Sronyx 0.1-20 MG-MCG Oral Tablet 05/22/2023 Provider : FRANCA ALICIA Diagnosis: One tablet daily Last Documented On 3 9:17AM By FRANCA ALICIA ; [facility] Escitalopram Oxalate 10 MG Oral Tablet 05/18/2023 Pr ovider: MAGED HAMILTON MD Diagnosis: Last Documented On 05/22/2023 9:13AM By Tami KELLY ; [facility] Medications Administered Includes: Administered Medications from this encounter No Administered Medications Recorded Vital Signs Includes: Vital Signs from this encounter Vital Name 05/20/2022 08:13A Blood Pressure Sitting L 108/62 BP Cuff Size Regular Temp-Temporal 97.2 Height (in) 58.5 Weight (lb) 103 Body Mass Index (kg/m2) 21.2 Body Surface Area (m2) 1.4 Last Documented: On 05/20/2022 8:20AM ; [facility] Results Includes: Results discussed during this encounter No Results Recorded For Specified Dates History of Present Illness Includes: History of Present Illness from this encounter BUTCH YUN is a 21 year old female. - Allergy list reviewed - Medication list reviewed - Primary Care Provider: Dr Maged Hamilton Social History Description Last Updated Alcohol use 05/22/2023 Last Documented On 2 8:13AM ; [facility] Not using drugs 05/22/2023 Last Documented On 2 8:13AM ; [facility] Former smoker 05/20/2022 Last Documented On 2 8:31AM ; [facility] Age of 1st intercourse was was 15 2020 Last Documented On 2 8:13AM ; [facility] Does not have anal sex 06/09/2021 Last Documented On 2 8:13AM ; [facility] Has not used injectable drugs 06/09/2021 Last Documented On 2 8:13AM ; [facility] Has sex with males only 06/09/2021 Last Documented On 2 8:13AM ; [facility] Have you ever had sex (vagin al or penis in anus or rectum)? vaginal, yes, anal sex no 06/09/2021 Last Documented On 2 8:13AM ; [facility] In monogamous relationship 06/09/2021 Last Documented On 2 8:13AM ; [facility] No consumption of alcohol 06/09/2021 Last Documented On 2 8:13AM ; [facility] No drug use by a sexual partner 06/09/20 21 Last Documented On 2 8:13AM ; [facility] Partner has not had a STD in the past ye ar 06/09/2021 Last Documented On 2 8:13AM ; [facility] Patient does not report having sex when she didn't want to 06/09/2021 Last Documented On 2 8:13AM ; [facility] Patient has not had sex unde r the influence of alcohol or drugs in the last year 06/09/2021 Last Documented On 2 8:13AM ; [facility] Sexual partner has not had o ther partners while in relationship with patient 06/09/2021 Last Documented On 2 8:13AM ; [facility] Sexual partner has not had sex with pros titutes 06/09/2021 Last Documented On 2 8:13AM ; [facility] Sexually active 06/09/2021 Last Documented On 2 8:13AM ; [facility] Sexually active with 1 partners in the l ast year 06/09/2021 Last Documented On 2 8:13AM ; [facility] Smoking Status Unknown Procedures and Surgical History Includes: Procedures from this encounter Procedures Code Diagnosis Performing Provider Service L ocation Service Date use of tobacco assessment performed 1000F Last Documented On 2 8:16AM ; [facility] review of medications documented 1160F Last Documented On 2 8:16AM ; [facility] history of cervical Pap smear 05/12/2021 18345 Last Documented On 2 8:16AM ; [facility] Chlamydia trachomatis culture was perfor med Last Documented On 2 8:14AM ; [facility] Neisseria gonorrhea culture was performe d Last Documented On 2 8:14AM ; [facility] Cervical Pap Smear performed Q0091 Last Documented On 2 8:14AM ; [facility] Medical History Includes: Medical History addressed during this encounter Description Last Updated Last pap smear date 05/12/2021 05/20/2022 Last Documented On 2 8:31AM ; [facility] LMP: 05/10/2022 05/20/2022 Last Documented On 2 8:31AM ; [facility] An HIV test was performed 06/09/2021 Last Documented On 2 8:13AM ; [facility] Elective (s) None 06/09/2021 Last Documented On 2 8:13AM ; [facility] Exercise 06/09/2021 Last Documented On 2 8:13AM ; [facility] No previous STD 06/09/2021 Last Documented On 2 8:13AM ; [facility] No. of miscarriages: None 06/09/2021 Last Documented On 2 8:13AM ; [facility] No. of Pregnancies: None 06/09/2021 Last Documented On 2 8:13AM ; [facility] Previous live (s) None 06/09/2021 Last Documented On 2 8:13AM ; [facility] Previous premature delivery(s) None 05/30 Last Documented On 2 8:13AM ; [facility] Family History Includes: Family History addressed during this encounter Description Last Updated Maternal history of Sexual Problems 04/29 Last Documented On 2 8:13AM ; [facility] Review of Systems Includes: Review of Systems [...] WELL WOMAN - ESTABLISHED PT FRANCA MARIEE [facility] 05/20/20 8:10AM 8:32AM Normal Female Exam Insurance Includes: Active Insurance Policies Plan Name Member ID Group # Subscriber Relationship Effect charity Dates 1 - [employer] [facility] [facility] [id number] SKY YUN Self Clinical Notes Includes: Clinical Notes from this encounter No Clinical Notes Recorded
--- OUTSIDE RECORDS SUMMARY | 2024-12-22 14:44 | XMS_ITS | Clinical Summary ---
Author Organization [facility] Address [address] [place] [address] Phone Care Team Providers Care Program Director Cable Television Name Role Phone MAGED CHONG MD Primary Care Provider [phone] RON RIVAS, GABRIELLA Young Unavailable [phone] Reason for Visit and Chief Complaint The Chief Complaint is: Patient is here for removal of Nexplanon Problems Includes: Problems addressed during this encounter and other active Problems All Visits Onset Date Resolved Date Provider Condition S bienvenidous Candice Classification Android Pelvis 05/12/2021 FRANCA DONNP-BC Active Last Documented On 1 11:46AM ; [facility] Risk: Tobacco Use 05/12/2021 FRANCA DONNP -BC Active Last Documented On 1 11:21AM ; [facility] Plan of Treatment - Clinical summary provided to patient - Last Documented On 06/09/2021 1:15PM ; [facility] Pending Tests Order Diagnosis Results Due Ordering Provider In office procedures - OB Implanon Removal Enctr srvlnc implantable subdermal contraceptive 06/23/21 FRANCA DONNP-BC Last Documented On 1 1:00PM ; [facility] Assessments Includes: Assessments from this encounter No [...] Diagnosis: One tablet daily Pharmacy: [facility] [address] [facility], [address] - Last Documented On 2 8:31AM By FRANCA ALICIA ; [facility] Current Medications (continue as prescribed) Sronyx 0.1-20 MG-MCG Oral Tablet 05/22/2023 Provider : FRANCA ALICIA Diagnosis: One tablet daily Last Documented On 3 9:17AM By FRANCA ALICIA ; [facility] Escitalopram Oxalate 10 MG Oral Tablet 05/18/2023 Pr ovider: MAGED CHONG MD Diagnosis: Last Documented On 05/22/2023 9:13AM By Tami KELLY ; [facility] Medications Administered Includes: Administered Medications from this encounter No Administered Medications Recorded Vital Signs Includes: Vital Signs from this encounter Vital Name 06/09/2021 12:56P Blood Pressure Sitting L 90/50 BP Cuff Size Regular Temp-Oral (F) 98.2 Height (in) 58.5 Weight (lb) 99 Body Mass Index (kg/m2) 20.3 Body Surface Area (m2) 1.4 Last Documented: On 06/09/2021 1:07PM ; [facility] Results Includes: Results discussed during [...] 2020 Last Documented On 1 1:15PM ; [facility] Alcohol use 06/09/2021 Last Documented On 1 1:15PM ; [facility] Does not have anal sex 06/09/2021 Last Documented On 1 1:15PM ; [facility] Has not used injectable drugs 06/09/2021 Last Documented On 1 1:15PM ; [facility] Has sex with males only 06/09/2021 Last Documented On 1 1:15PM ; [facility] Have you ever had sex (vagin al or penis in anus or rectum)? vaginal, yes, anal sex no 06/09/2021 Last Documented On 1 1:15PM ; [facility] In monogamous relationship 06/09/2021 Last Documented On 1 1:15PM ; [facility] No consumption of alcohol 06/09/2021 Last Documented On 1 1:15PM ; [facility] No drug use by a sexual partner 06/09/20 Last Documented On 1 1:15PM ; [facility] Not using drugs 06/09/2021 Last Documented On 1 1:15PM ; [facility] Partner has not had a STD in the past ye ar 06/09/2021 Last Documented On 1 1:15PM ; [facility] Patient does not report having sex when she didn't want to 06/09/2021 Last Documented On 1 1:15PM ; [facility] Patient has not had sex unde r the influence of alcohol or drugs in the last year 06/09/2021 Last Documented On 1 1:15PM ; [facility] Sexual partner has not had o ther partners while in relationship with patient 06/09/2021 Last Documented On 1 1:15PM ; [facility] Sexual partner has not had sex with pros titutes 06/09/2021 Last Documented On 1 1:15PM ; [facility] Sexually active 06/09/2021 Last Documented On 1 1:15PM ; [facility] Sexually active with 1 partners in the l ast year 06/09/2021 Last Documented On 1 1:15PM ; [facility] Smoking electronic cigarettes 06/09/2021 Last Documented On 1 1:15PM ; [facility] Smoking Status Unknown Procedures and Surgical History Includes: Procedures from this encounter Procedures Code Diagnosis Performing Provider Service L ocation Service Date use of tobacco assessment performed 1000F Last Documented On 1 1:05PM ; [facility] review of medications documented 1160F Last [...] infection reviewed Last Documented On 12:55PM ; [facility] test was negative Last Documented On 12:54PM ; [facility] Medical History Includes: Medical History addressed during this encounter Description Last Updated An HIV test was performed 06/09/2021 Last Documented On 1:15PM ; [facility] Contraception: Nexplanon, inserted inMay , [address] Stokes 06/09/2021 Last Documented On 1 1:15PM ; [facility] Elective (s) None 06/09/2021 Last Documented On 1 1:15PM ; [facility] Exercise 06/09/2021 Last Documented On 1 1:15PM ; [facility] LMP: 05/05/2021 06/09/2021 Last Documented On 1 1:15PM ; [facility] No previous STD 06/09/2021 Last Documented On 1 1:15PM ; [facility] No. of miscarriages: None 06/09/2021 Last Documented On 1 1:15PM ; [facility] No. of Pregnancies: None 06/09/2021 Last Documented On 1 1:15PM ; [facility] Previous live (s) None 06/09/2021 Last Documented On 1 1:15PM ; [facility] Previous premature delivery(s) None 05/30 Last Documented On 1 1:15PM ; [facility] Subdermal implant 06/09/2021 Last Documented On 1 1:15PM ; [facility] Family History Includes: Family History addressed during this encounter Description Last Updated Maternal history of Sexual Problems 04/29 Last Documented On 1 12:56PM ; [facility] Review of Systems Includes: Review of [...] Out Time Diagnosis PROCEDURE OFFICE FRANCA MARIEE [facility] 1 12:48PM 1:18PM Insurance Includes: Active Insurance Policies Plan Name Member ID Group # Subscriber Relationship Effect charity Dates 1 - AETNA [facility] [id number] SKY YUN Self Clinical Notes Includes: Clinical Notes from this encounter No Clinical Notes Recorded
--- OUTSIDE RECORDS SUMMARY | 2024-12-22 14:44 | XMS_ITS ---
Author Organization [facility] Address [address] [place] [address] Phone Care Team Providers Care Director Of Donor Relations Name Role Phone CASTILLO RIVAS, MAGED Primary Care Provider [phone] RON RIVAS, GABRIELLA Young Unavailable [phone] Problems Includes: Active, inactive, and resolved Problems All Visits Onset Date Resolved Date Provider Condition S tatus Maria Teresa-manuel Classification Android Pelvis 05/12/2021 FRANCA MARIEE WHNP-BC Active Last Documented On 1 11:46AM ; [facility] Risk: Tobacco Use 05/12/2021 FRANCA MARIEE WHNP -BC Active Last Documented On 1 11:21AM ; [facility] Plan of Treatment Findings Encounter Date Ordered Clinical summary pro vided to patient PROBLEM VISIT with FRANCA MARIEE WHNP-BC 09/06/2023 Last Documented On 3 2:59PM ; [facility] Ordered Clinical summary pro vided to patient WELL WOMAN - ESTABLISHED PT with FRANCA MARIEE WHNP-BC 05/20/2022 Last Documented On 2 8:31AM ; [facility] Ordered Clinical summary pro vided to patient PROCEDURE OFFICE with FRANCA MARIEE WHNP-BC 06/09/2021 Last Documented On 1 1:15PM ; [facility] Ordered Clinical summary pro vided to patient WELL WOMAN - NEW PATIENT with FRANCA MARIEE WHNP-BC 05/12/2021 Last Documented On 1 11:46AM ; [facility] Instructions to patient Instructions for patient Tangela l for any palpable lumps Last Documented On 3 2:35PM ; [facility] Instructed to decrease carbo nation and caffeine Last Documented On 3 2:35PM ; [facility] Instructions For Patient: Mo nthly Self Breast Exam Last Documented On 3 2:35PM ; [facility] Instructions for patient : B reast Self Exam discussed Last Documented On 3 9:08AM ; [facility] Gardasil information given a nd series encouraged Series completed! Last Documented On 3 9:09AM ; [facility] Safe sex counseling Last Documented On 3 9:09AM ; [facility] Instructions for patient : B reast Self Exam discussed Last Documented On 2 8:13AM ; [facility] Gardasil information given a nd series encouraged Last Documented On 2 8:14AM ; [facility] Safe sex counseling Last Documented On 2 8:14AM ; [facility] Instructions for patient : B reast Self Exam discussed Last Documented On 1 11:15AM ; [facility] Intervention and counseling on cessation of tobacco use Last Documented On 1 11:23AM ; [facility] Gardasil information given a nd series encouraged Last Documented On 1 11:15AM ; [facility] Safe sex counseling Last Documented On 1 11:15AM ; [facility] Education and Decision Aids were provided during visit for: Smoking cessation advised Last Documented On 3 2:36PM ; [facility] Patient Education: Daily tangela cium and vitamin D Last Documented On 3 9:08AM ; [facility] Patient Education: weight be aring exercise Last Documented On 3 9:08AM ; [facility] Smoking cessation advised Last Documented On 3 9:11AM ; [facility] Patient Education: Daily tangela cium and vitamin D Last Documented On 2 8:13AM ; [facility] Patient Education: weight be aring exercise Last Documented On 2 8:13AM ; [facility] Patient Education: Daily tangela cium and vitamin D Last Documented On 1 11:15AM ; [facility] Patient Education: weight be aring exercise Last Documented On 1 11:15AM ; [facility] Smoking cessation advised Last Documented On 1 11:25AM ; [facility] control consent review ed and signed Last Documented On 1 11:43AM ; [facility] Assessments Includes: Assessments for all patient encounters Findings Encounter Date Fibrocystic disease of breast PROBLEM VISIT with FRANCA MARIEE NP-BC 09/06/2023 Last Documented On 3 2:59PM ; [facility] NORMAL FEMALE EXAM WELL WOMAN - ESTABLISHED PT w ith FRANCA MARIEE NP-BC 05/22/2023 Last Documented On 3 9:25AM ; [facility] NORMAL FEMALE EXAM WELL WOMAN - ESTABLISHED PT w ith FRANCA MARIEE NP-BC 05/20/2022 Last Documented On 2 8:31AM ; [facility] Low fat diet WELL WOMAN - NEW PATIENT with CA JAZMYNE MARIEE NP-BC 05/12/2021 Last Documented On 1 11:46AM ; [facility] NORMAL FEMALE EXAM WELL WOMAN - NEW PATIENT with FRANCA MARIEE NP-BC 05/12/2021 Last Documented On 1 11:46AM ; [facility] Instructions Includes: Instructions for all patient encounters Instructions to patient Instructions for patient Tangela l for any palpable lumps Last Documented On 3 2:35PM ; [facility] Instructed to decrease carbo nation and caffeine Last Documented On 3 2:35PM ; [facility] Instructions For Patient: Mo nthly Self Breast Exam Last Documented On 3 2:35PM ; [facility] Instructions for patient : B reast Self Exam discussed Last Documented On 3 9:08AM ; [facility] Gardasil information given a nd series encouraged Series completed! Last Documented On 3 9:09AM ; [facility] Safe sex counseling Last Documented On 3 9:09AM ; [facility] Instructions for patient : B reast Self Exam discussed Last Documented On 2 8:13AM ; [facility] Gardasil information given a nd series encouraged Last Documented On 2 8:14AM ; [facility] Safe sex counseling Last Documented On 2 8:14AM ; [facility] Instructions for patient : B reast Self Exam discussed Last Documented On 1 11:15AM ; [facility] Intervention and counseling on cessation of tobacco use Last Documented On 1 11:23AM ; [facility] Gardasil information given a nd series encouraged Last Documented On 1 11:15AM ; [facility] Safe sex counseling Last Documented On 1 11:15AM ; [facility] Education and Decision Aids were provided during visit for: Smoking cessation advised Last Documented On 3 2:36PM ; [facility] Patient Education: Daily tangela cium and vitamin D Last Documented On 3 9:08AM ; [facility] Patient Education: weight be aring exercise Last Documented On 3 9:08AM ; [facility] Smoking cessation advised Last Documented On 3 9:11AM ; [facility] Patient Education: Daily tangela cium and vitamin D Last Documented On 2 8:13AM ; [facility] Patient Education: weight be aring exercise Last Documented On 2 8:13AM ; [facility] Patient Education: Daily tangela cium and vitamin D Last Documented On 1 11:15AM ; [facility] Patient Education: weight be aring exercise Last Documented On 1 11:15AM ; [facility] Smoking cessation advised Last Documented On 1 11:25AM ; [facility] control consent review ed and signed Last Documented On 1 11:43AM ; [facility] Medical Equipment - Implanted Devices Includes: Current and historical Devices No Medical Equipment Recorded Medications Includes: Current and historical Medications Current Medications (continue as prescribed) Sronyx 0.1-20 MG-MCG Oral Tablet 05/22/2023 Provider : FRANCA ALICIA Diagnosis: One tablet daily Last Documented On 3 9:17AM By FRANCA SOTRY-BC ; [facility] Escitalopram Oxalate 10 MG Oral Tablet 05/18/2023 Pr ovider: MAGED CHONG MD Diagnosis: Last Documented On 05/22/2023 9:13AM By Tami KELLY ; [facility] Past Medications on file Sronyx 0.1-20 MG-MCG Oral Tablet 05/18/2023 - 05/22/2023 Provider: FRANCA MARIEE HVAC/R SERVICE TECHNICIAN-BC Diagnosis: One tablet daily Last Documented On 3 9:12AM By FRANCA ALICIA ; [facility] Sronyx 0.1-20 MG-MCG Oral Tablet 04/20/2023 - 05/18/2023 Provider: FRANCA MARIEE HVAC/R SERVICE TECHNICIAN-BC Diagnosis: One tablet daily Last Documented On 3 6:01AM By FRANCA ALICIA ; [facility] Aviane 0.1-20 MG-MCG Oral Tablet 05/20/2022 - 04/20/2023 Provider: FRANCA DON HVAC/R SERVICE TECHNICIAN-BC Diagnosis: One tablet daily Last Documented On 3 6:05AM By FRANCA ALICIA ; [facility] Aviane 0.1-20 MG-MCG Oral Tablet 06/09/2021 - 05/20/2022 Provider: FRANCA DON HVAC/R SERVICE TECHNICIAN-BC Diagnosis: One tablet daily Last Documented On 2 8:31AM By FRANCA ALICIA ; [facility] Aviane 0.1-20 MG-MCG Oral Tablet 05/12/2021 - 06/09/2021 Provider: FRANCA DON HVAC/R SERVICE TECHNICIAN-BC Diagnosis: One tablet daily Last Documented On 1 1:04PM By FRANCA ALICIA ; [facility] Medications Administered Includes: Administered Medications in patient's chart No Administered Medications Recorded Results Includes: Results from 12/22/2023 through 12/22/2024 No Results Recorded For Specified Dates History of Present Illness History of Present Illness not supported for this document type No History of Present Illness Recorded Social History Description Last Updated Not using alcohol 05/22/2023 Last Documented On 3 9:25AM ; [facility] Not using drugs 05/22/2023 Last Documented On 3 9:25AM ; [facility] Current smoker 05/22/2023 Last Documented On 3 9:25AM ; [facility] Smoking electronic cigarettes 05/22/2023 Last Documented On 3 9:25AM ; [facility] control is being practiced Sronyx 05/22/2023 Last Documented On 3 9:25AM ; [facility] Former smoker 05/20/2022 Last Documented On 2 8:31AM ; [facility] Age of 1st intercourse was was 15 2020 Last Documented On 1 1:15PM ; [facility] Has sex with males only 06/09/2021 Last Documented On 1 1:15PM ; [facility] Sexually active 06/09/2021 Last Documented On 1 1:15PM ; [facility] Smoking Status Unknown Medical History Includes: Medical History in patient's chart Description Last Updated LMP: 09/05/2023 09/06/2023 Last Documented On 3 2:59PM ; [facility] Last pap smear date 05/20/2022 05/22/2023 Last Documented On 3 9:25AM ; [facility] Contraception: Nexplanon, inserted iny , [address] Stokes 06/09/2021 Last Documented On 1 1:15PM ; [facility] Elective (s) None 06/09/2021 Last Documented On 1 1:15PM ; [facility] No previous STD 06/09/2021 Last Documented On 1 1:15PM ; [facility] No. of miscarriages: None 06/09/2021 Last Documented On 1 1:15PM ; [facility] No. of Pregnancies: None 06/09/2021 Last Documented On 1 1:15PM ; [facility] Previous live (s) None 06/09/2021 Last Documented On 1 1:15PM ; [facility] Previous premature delivery(s) None 05/30 Last Documented On 1 1:15PM ; [facility] Family History Includes: Family History in patient's chart Description Last Updated Family history reviewed - unchanged sinc e last visit 05/22/2023 Last Documented On 3 9:25AM ; [facility] Maternal history of Sexual Problems 04/29 Last Documented On 1 11:46AM ; [facility] Review of Systems Review of Systems not [...] Relationship Effect charity Dates 1 - [employer] [facility] [id number] SKY YUN Self Clinical Notes Includes: Signed Clinical Notes starting from 11/18/2022 No Clinical Notes Recorded
--- OUTSIDE RECORDS SUMMARY | 2024-12-22 14:44 | XMS_ITS | Continuity of Care Document ---
Author Organization [facility] Address [address] [place] [address] Phone Care Team Providers Care Ornamental Metal Worker Name Role Phone Maikel Pardo MD Unavailable [...] Diagnoses Date Provider Providers Copied on Encounter [facility], [address], [place], [place], [id number] , [place] tel: [phone] Urgent Care No Information [address], [place], [place], [address] , [place]. tel: [phone] OFFICE/OUTPA TIENT VISIT, NEW [facility], [address], [place], [place], [address] , [place] tel: [phone] Urgent Care blood work (chief complaint) Body mass index (BMI) 22.0-22.9, adultEncounter for screening for infections with a predominantly sexual mode of transmissionEncounter for screening for HIVEncounter for screening for other disorderEncounter for screening, unspecified [address], [place], [place], [address] , [place]. tel: [phone] Referring Provider: Maikel Pardo, [address], [place], [address] . tel:[phone] Family History Family Member Type Diagnosis Age [...]
--- OUTSIDE RECORDS SUMMARY | 2024-12-22 14:44 | XMS_ITS | Clinical Summary ---
Author Organization [facility] Address [address] [place] [address] Phone Care Team Providers Care Animal Tech Name Role Phone CASTILLO RIVAS, MAGED Primary Care Provider [phone] RON RIVAS, GABRIELLA Young Unavailable [phone] Reason for Visit and Chief Complaint The Chief Complaint is: WWE, no c/o, no new partners Problems Includes: Problems addressed during this encounter and other active Problems All Visits Onset Date Resolved Date Provider Condition S kristin Harvey Classification Android Pelvis 05/12/2021 FRANCA MARIEE WHNP-BC Active Last Documented On 1 11:46AM ; [facility] Risk: Tobacco Use 05/12/2021 FRANCA MARIEE WHNP -BC Active Last Documented On 1 11:21AM ; [facility] Plan of Treatment - Clinical summary provided to patient - Last Documented On 05/20/2022 8:31AM ; [facility] Instructions to patient Instructions for patient : B reast Self Exam discussed Last Documented On 2 8:13AM ; [facility] Gardasil information given a nd series encouraged Last Documented On 2 8:14AM ; [facility] Safe sex counseling Last Documented On 2 8:14AM ; [facility] Education and Decision Aids were provided during visit for: Patient Education: Daily tangela cium and vitamin D Last Documented On 2 8:13AM ; [facility] Patient Education: weight be aring exercise Last Documented On 2 8:13AM ; [facility] Assessments Includes: Assessments from this encounter Findings - NORMAL FEMALE EXAM [Z01.419 - Encounter for gynecological examination (general) (routine) without abnormal findings] - Last Documented On 05/20/2022 8:31AM ; [facility] Instructions Includes: Instructions from this encounter Instructions to patient Instructions for patient : B reast Self Exam discussed Last Documented On 2 8:13AM ; [facility] Gardasil information given a nd series encouraged Last Documented On 2 8:14AM ; [facility] Safe sex counseling Last Documented On 2 8:14AM ; [facility] Education and Decision Aids were provided during visit for: Patient Education: Daily tangela cium and vitamin D Last Documented On 2 8:13AM ; [facility] Patient Education: weight be aring exercise Last Documented On 2 8:13AM ; [facility] Medical Equipment - Implanted Devices Includes: Current Devices No Medical Equipment Recorded Medications Includes: Medications discussed during this encounter and other current Medications New / Renewed during this visit FRANCA ALICIA on 05/20/2022 Aviane 0.1-20 MG-MCG Oral Tablet Provider: FRANCA Young 30 day supply: 30 tablet, 11 refills Diagnosis: One tablet daily Pharmacy: [facility] [address], [address] - Last Documented On 3 6:05AM By FRANCA ALICIA ; [facility] Current Medications (continue as prescribed) Sronyx 0.1-20 MG-MCG Oral Tablet 05/22/2023 Provider : FRANCA ALICIA Diagnosis: One tablet daily Last Documented On 3 9:17AM By FRANCA ALICIA ; [facility] Escitalopram Oxalate 10 MG Oral Tablet 05/18/2023 Pr ovider: MAGED HAMILTON MD Diagnosis: Last Documented On 05/22/2023 9:13AM By Tami KELLY ; [facility] Medications Administered Includes: Administered Medications from this encounter No Administered Medications Recorded Vital Signs Includes: Vital Signs from this encounter Vital Name 05/20/2022 08:13A Blood Pressure Sitting L 108/62 BP Cuff Size Regular Temp-Temporal 97.2 Height (in) 58.5 Weight (lb) 103 Body Mass Index (kg/m2) 21.2 Body Surface Area (m2) 1.4 Last Documented: On 05/20/2022 8:20AM ; [facility] Results Includes: Results discussed [...] 05/22/2023 Last Documented On 2 8:13AM ; [facility] Not using drugs 05/22/2023 Last Documented On 2 8:13AM ; [facility] Former smoker 05/20/2022 Last Documented On 2 8:31AM ; [facility] Age of 1st intercourse was was 15 2020 Last Documented On 2 8:13AM ; [facility] Does not have anal sex 06/09/2021 Last Documented On 2 8:13AM ; [facility] Has not used injectable drugs 06/09/2021 Last Documented On 2 8:13AM ; [facility] Has sex with males only 06/09/2021 Last Documented On 2 8:13AM ; [facility] Have you ever had sex (vagin al or penis in anus or rectum)? vaginal, yes, anal sex no 06/09/2021 Last Documented On 2 8:13AM ; [facility] In monogamous relationship 06/09/2021 Last Documented On 2 8:13AM ; [facility] No consumption of alcohol 06/09/2021 Last Documented On 2 8:13AM ; [facility] No drug use by a sexual partner 06/09/20 21 Last Documented On 2 8:13AM ; [facility] Partner has not had a STD in the past ye ar 06/09/2021 Last Documented On 2 8:13AM ; [facility] Patient does not report having sex when she didn't want to 06/09/2021 Last Documented On 2 8:13AM ; [facility] Patient has not had sex unde r the influence of alcohol or drugs in the last year 06/09/2021 Last Documented On 2 8:13AM ; [facility] Sexual partner has not had o ther partners while in relationship with patient 06/09/2021 Last Documented On 2 8:13AM ; [facility] Sexual partner has not had sex with pros titutes 06/09/2021 Last Documented On 2 8:13AM ; [facility] Sexually active 06/09/2021 Last Documented On 2 8:13AM ; [facility] Sexually active with 1 partners in the l ast year 06/09/2021 Last Documented On 2 8:13AM ; [facility] Smoking Status Unknown Procedures and Surgical History Includes: Procedures from this encounter Procedures Code Diagnosis Performing Provider Service L ocation Service Date use of tobacco assessment performed 1000F Last Documented On 2 8:16AM ; [facility] review of medications documented 1160F Last Documented On 2 8:16AM ; [facility] history of cervical Pap smear 05/12/2021 [id number] Last Documented On 2 8:16AM ; [facility] Chlamydia trachomatis culture was perfor med Last Documented On 2 8:14AM ; [facility] Neisseria gonorrhea culture was performe d Last Documented On 2 8:14AM ; [facility] Cervical Pap Smear performed [id number] Last Documented On 2 8:14AM ; [facility] Medical History Includes: Medical History addressed during this encounter Description Last Updated Last pap smear date 05/12/2021 05/20/2022 Last Documented On 2 8:31AM ; [facility] LMP: 05/10/2022 05/20/2022 Last Documented On 2 8:31AM ; [facility] An HIV test was performed 06/09/2021 Last Documented On 2 8:13AM ; [facility] Elective (s) None 06/09/2021 Last Documented On 2 8:13AM ; [facility] Exercise 06/09/2021 Last Documented On 2 8:13AM ; [facility] No previous STD 06/09/2021 Last Documented On 2 8:13AM ; [facility] No. of miscarriages: None 06/09/2021 Last Documented On 2 8:13AM ; [facility] No. of Pregnancies: None 06/09/2021 Last Documented On 2 8:13AM ; [facility] Previous live (s) None 06/09/2021 Last Documented On 2 8:13AM ; [facility] Previous premature delivery(s) None 05/30 Last Documented On 2 8:13AM ; [facility] Family History Includes: Family History addressed during this encounter Description Last Updated Maternal history of Sexual Problems 04/29 Last Documented On 2 8:13AM ; [facility] Review of Systems Includes: Review of [...] WELL WOMAN - ESTABLISHED PT FRANCA MARIEE [facility] 05/20/20 8:10AM 8:32AM Normal Female Exam Insurance Includes: Active Insurance Policies Plan Name Member ID Group # Subscriber Relationship Effect charity Dates 1 - [employer] [id number] SKY YUN Self Clinical Notes Includes: Clinical Notes from this encounter No Clinical Notes Recorded
--- OUTSIDE RECORDS SUMMARY | 2024-12-22 14:45 | XMS_ITS | Clinical Summary ---
Author Organization [facility] Address [address] [place] [address] Phone Care Team Providers Care Refrigeration Technician Name Role Phone CASTILLO RIVAS, MAGED Primary Care Provider [phone] RON RIVAS, GABRIELLA Young Unavailable [phone] Reason for Visit and Chief Complaint The Chief Complaint is: pt c/o right breast lump the past week or two Problems Includes: Problems addressed during this encounter and other active Problems All Visits Onset Date Resolved Date Provider Condition S kristin Harvey Classification Android Pelvis 05/12/2021 FRANCA MARIEE WHNP-BC Active Last Documented On 1 11:46AM ; [facility] Risk: Tobacco Use 05/12/2021 FRANCA MARIEE WHNP -BC Active Last Documented On 1 11:21AM ; [facility] Plan of Treatment - Clinical summary provided to patient - Last Documented On 09/06/2023 2:59PM ; [facility] Instructions to patient Instructions for patient Jose Alberto l for any palpable lumps Last Documented On 3 2:35PM ; [facility] Instructed to decrease [place]bo [place] and caffeine Last Documented On 3 2:35PM ; [facility] Instructions For Patient: Mo nthly Self Breast Exam Last Documented On 3 2:35PM ; [facility] Education and Decision Aids were provided during visit for: Smoking cessation advised Last Documented On 3 2:36PM ; [facility] Assessments Includes: Assessments from this encounter Findings - Fibrocystic disease of breast [N60.11 - Diffuse cystic mastopathy of right breast] - Last Documented On 09/06/2023 2:59PM ; [facility] Instructions Includes: Instructions from this encounter Instructions to patient Instructions for patient Jose Alberto l for any palpable lumps Last Documented On 3 2:35PM ; [facility] Instructed to decrease [place]bo [place] and caffeine Last Documented On 3 2:35PM ; [facility] Instructions For Patient: Mo nthly Self Breast Exam Last Documented On 3 2:35PM ; [facility] Education and Decision Aids were provided during visit for: Smoking cessation advised Last Documented On 3 2:36PM ; [facility] Medical Equipment - Implanted Devices Includes: Current Devices No Medical Equipment Recorded Medications Includes: Medications discussed during this encounter and other current Medications Current Medications (continue as prescribed) Sronyx 0.1-20 MG-MCG Oral Tablet 05/22/2023 Provider : FRANCA ALICIA Diagnosis: One tablet daily Last Documented On 3 9:17AM By FRANCA ALICIA ; [facility] Escitalopram Oxalate 10 MG Oral Tablet 05/18/2023 Pr ovider: MAGED CHONG MD Diagnosis: Last Documented On 05/22/2023 9:13AM By Tami KELLY ; [facility] Medications Administered Includes: Administered Medications from this encounter No Administered Medications Recorded Vital Signs Includes: Vital Signs from this encounter Vital Name 09/06/2023 02:58P Blood Pressure Sitting (mmHg) 112/63 Temp-Oral (F) 98.4 Height (in) 58.5 Weight (lb) 108 Body Mass Index 22.2 Body Surface Area 1.4 Last Documented: On 09/06/2023 2:59PM ; [facility] Results Includes: Results discussed during this encounter No Results Recorded For Specified Dates History of Present Illness Includes: History of Present Illness from this encounter No History of Present Illness Recorded Social History Description Last Updated Not using alcohol 05/22/2023 Last Documented On 3 2:32PM ; [facility] Not using drugs 05/22/2023 Last Documented On 3 2:32PM ; [facility] Current smoker 05/22/2023 Last Documented On 3 2:32PM ; [facility] Smoking electronic cigarettes 05/22/2023 Last Documented On 3 2:32PM ; [facility] control is being practiced Sronyx 05/22/2023 Last Documented On 3 2:32PM ; [facility] Former smoker 05/20/2022 Last Documented On 3 2:32PM ; [facility] Age of 1st intercourse was was 15 2020 Last Documented On 3 2:32PM ; [facility] Has sex with males only 06/09/2021 Last Documented On 3 2:32PM ; [facility] Sexually active 06/09/2021 Last Documented On 3 2:32PM ; [facility] Smoking Status Unknown Procedures and Surgical History Includes: Procedures from this encounter Procedures Code Diagnosis Performing Provider Service L ocation Service Date history of cervical Pap smear 05/22/2023 Normal 08656 Last Documented On 3 2:52PM ; [facility] Medical History Includes: Medical History addressed during this encounter Description Last Updated LMP: 09/05/2023 09/06/2023 Last Documented On 3 2:59PM ; [facility] Elective (s) None 06/09/2021 Last Documented On 3 2:32PM ; [facility] No previous STD 06/09/2021 Last Documented On 3 2:32PM ; [facility] No. of miscarriages: None 06/09/2021 Last Documented On 3 2:32PM ; [facility] No. of Pregnancies: None 06/09/2021 Last Documented On 3 2:32PM ; [facility] Previous live (s) None 06/09/2021 Last Documented On 3 2:32PM ; [facility] Previous premature delivery(s) None 05/30 Last Documented On 3 2:32PM ; [facility] Family History Includes: Family History addressed during this encounter Description Last Updated Family history reviewed - unchanged [facility] last visit 05/22/2023 Last Documented On 3 2:32PM ; [facility] Maternal history of Sexual Problems 04/29 Last Documented On 3 2:32PM ; [facility] Review of Systems Includes: Review [...] Check-Out Time Diagnosis PROBLEM VISIT FRANCA ALICIA [facility] 09/06/20 23 2:28PM 2:46PM Breast Fibrocystic Disease Insurance Includes: Active Insurance Policies Plan Name Member ID Group # Subscriber Relationship Effect charity Dates 1 - [employer] [facility] [id number] SKY YUN Self Clinical Notes Includes: Clinical Notes from this encounter * Progress note Date Encounter Last Documented by 09/06/2023 PROBLEM VISIT Last documented on 09/06/2023; 2:59 PM, FRANCA ALICIA; [facility] Active Problems & Conditions - [...]
--- OUTSIDE RECORDS SUMMARY | 2024-12-22 14:45 | XMS_ITS | Clinical Summary ---
Author Organization [facility] Address [address] [place] [address] Phone Care Team Providers Care Human Capital Manager Name Role Phone CASTILLO RIVAS, MAGED Primary Care Provider [phone] RON RIVAS, GABRIELLA Young Unavailable [phone] Reason for Visit and Chief Complaint The Chief Complaint is: WWE. No concerns today. 1 new sexual partner Problems Includes: Problems addressed during this encounter and other active Problems All Visits Onset Date Resolved Date Provider Condition S bienvenidous Maria Teresa-manuel Classification Android Pelvis 05/12/2021 FRANCA MARIEE WHNP-BC Active Last Documented On 1 11:46AM ; [facility] Risk: Tobacco Use 05/12/2021 FRANCA MARIEE WHNP -BC Active Last Documented On 1 11:21AM ; [facility] Plan of Treatment Instructions to patient Instructions for patient : B reast Self Exam discussed Last Documented On 3 9:08AM ; [facility] Gardasil information given a nd series encouraged Series completed! Last Documented On 3 9:09AM ; [facility] Safe sex counseling Last Documented On 3 9:09AM ; [facility] Education and Decision Aids were provided during visit for: Patient Education: Daily tangela cium and vitamin D Last Documented On 3 9:08AM ; [facility] Patient Education: weight be aring exercise Last Documented On 3 9:08AM ; [facility] Smoking cessation advised Last Documented On 3 9:11AM ; [facility] Assessments Includes: Assessments from this encounter Findings - NORMAL FEMALE EXAM [Z01.419 - Encounter for gynecological examination (general) (routine) without abnormal findings] - Last Documented On 05/22/2023 9:25AM ; [facility] Instructions Includes: Instructions from this encounter Instructions to patient Instructions for patient : B reast Self Exam discussed Last Documented On 3 9:08AM ; [facility] Gardasil information given a nd series encouraged Series completed! Last Documented On 3 9:09AM ; [facility] Safe sex counseling Last Documented On 3 9:09AM ; [facility] Education and Decision Aids were provided during visit for: Patient Education: Daily tangela cium and vitamin D Last Documented On 3 9:08AM ; [facility] Patient Education: weight be aring exercise Last Documented On 3 9:08AM ; [facility] Smoking cessation advised Last Documented On 3 9:11AM ; [facility] Medical Equipment - Implanted Devices Includes: Current Devices No Medical Equipment Recorded Medications Includes: Medications discussed during this encounter and other current Medications New / Renewed during this visit FRANCA ALICIA on 05/22/2023 Sronyx 0.1-20 MG-MCG Oral Tablet Provider: FRANCA Young 28 day supply: 28 tablet, 11 refills Diagnosis: One tablet daily Pharmacy: [facility] [address], [address] - Last Documented On 3 9:17AM By FRANCA ALICIA ; [facility] Current Medications (continue as prescribed) Escitalopram Oxalate 10 MG Oral Tablet 05/18/2023 Pr ovider: MAGED HAMILTON MD Diagnosis: Last Documented On 05/22/2023 9:13AM By Tami KELLY ; [facility] Medications Administered Includes: Administered Medications from this encounter No Administered Medications Recorded Vital Signs Includes: Vital Signs from this encounter Vital Name 05/22/2023 09:13A Blood Pressure Sitting L 118/82 BP Cuff Size Regular Temp-Temporal 98.1 Height (in) 58.5 Weight (lb) 101 Body Mass Index 20.7 Body Surface Area 1.4 Last Documented: On 05/22/2023 9:15AM ; [facility] Results Includes: Results discussed during this [...] 05/22/2023 Last Documented On 3 9:25AM ; [facility] Not using drugs 05/22/2023 Last Documented On 3 9:25AM ; [facility] Current smoker 05/22/2023 Last Documented On 3 9:25AM ; [facility] Smoking electronic cigarettes 05/22/2023 Last Documented On 3 9:25AM ; [facility] control is being practiced Sronyx 05/22/2023 Last Documented On 3 9:25AM ; [facility] Age of 1st intercourse was was 15 2020 Last Documented On 3 9:08AM ; [facility] Has sex with males only 06/09/2021 Last Documented On 3 9:08AM ; [facility] Sexually active 06/09/2021 Last Documented On 3 9:08AM ; [facility] Smoking Status Unknown Procedures and Surgical History Includes: Procedures from this encounter Procedures Code Diagnosis Performing Provider Service L ocation Service Date low fat diet Last Documented On 3 9:09AM ; [facility] use of tobacco assessment performed 1000F Last Documented On 3 9:08AM ; [facility] review of medications documented 1160F Last Documented On 3 9:08AM ; [facility] history of cervical Pap smear 05/20/2022 05283 Last Documented On 3 9:09AM ; [facility] Chlamydia trachomatis culture was perfor med Last Documented On 3 9:09AM ; [facility] Neisseria gonorrhea culture was performe d Last Documented On 3 9:09AM ; [facility] Cervical Pap Smear performed Q0091 Last Documented On 3 9:09AM ; [facility] Medical History Includes: Medical History addressed during this encounter Description Last Updated LMP: 05/09/2023 05/22/2023 Last Documented On 3 9:25AM ; [facility] Last pap smear date 05/20/2022 05/22/2023 Last Documented On 3 9:25AM ; [facility] Contraception: Nexplanon, inserted inFebruary by Dr. Stokes 06/09/2021 Last Documented On 3 9:08AM ; [facility] Elective (s) None 06/09/2021 Last Documented On 3 9:08AM ; [facility] No previous STD 06/09/2021 Last Documented On 3 9:08AM ; [facility] No. of miscarriages: None 06/09/2021 Last Documented On 3 9:08AM ; [facility] No. of Pregnancies: None 06/09/2021 Last Documented On 3 9:08AM ; [facility] Previous live (s) None 06/09/2021 Last Documented On 3 9:08AM ; [facility] Previous premature delivery(s) None 05/30 Last Documented On 3 9:08AM ; [facility] Family History Includes: Family History addressed during this encounter Description Last Updated Family history reviewed - [facility] last visit 05/22/2023 Last Documented On 3 9:25AM ; [facility] Maternal history of Sexual Problems 04/29 Last Documented On 3 9:08AM ; [facility] Review of Systems Includes: Review of [...] WELL WOMAN - ESTABLISHED PT FRANCA MARIEE [facility] 05/22/20 9:10AM 9:25AM Normal Female Exam Insurance Includes: Active Insurance Policies Plan Name Member ID Group # Subscriber Relationship Effect charity Dates 1 - [employer] [id number] SKY YUN Self Clinical Notes Includes: Clinical Notes from this encounter * Progress note Date Encounter Last Documented by 05/22/2023 WELL WOMAN - ESTABLISHED PT Last documented on 05/22/2023; 9:25 AM, FRANCA MARIEE [facility]; [facility] Active Problems & Conditions - [...]
[2024-12-22 14:46] VITALS: BP 130/93; PULSE 92; RESP 18; TEMP 36.9; O2SAT 100
--- NOTE | 2024-12-22 15:17 | ED.GENADULT ---
HPI - General Adult General Chief complaint: Extremity Injury, Upper Stated complaint: left shoulder injury Source: patient Mode of arrival: ambulatory Limitations: no limitations History of Present Illness HPI narrative: Pt presents for evaluation of left shoulder pain. 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 The first injury was in July of 2024. She fell back and her elbows hit the ground, causing her left shoulder to get steven in the process. She had a similar injury that occurred yesterday. She rates her pain as 8/10 in severity. Pain is burning in nature. She also reports pain in the left lateral ribs but does not recall any direct trauma to that area. She has tried tylenol and ibuprofen but her pain persists. She is right hand dominant. She has decreased ROM in the left shoulder. Related Data Home Medications ?Medication ?Instructions ?Recorded ?Confirmed ?Last Taken ?Type levonorgestrel-ethinyl estradiol tablet 10/12/22 06/06/24 Unknown History 0.1 mg-20 mcg tablet (Sronyx) buspirone 15 mg tablet mg 12/22/24 Unknown History Allergies Allergy/AdvReac Type Severity Reaction Status Date / Time No Known Allergies Allergy Verified 12/22/24 14:50 Review of Systems Review of Systems: CONSTITUTIONAL: Denies fever, chills, or sweats. EYES: Denies visual changes, redness, or discharge. ENT: Denies rhinorrhea, congestion, sore throat, or otalgia. CARDIOVASCULAR: Denies chest pain, palpitations, or edema. RESPIRATORY: Denies cough or dyspnea. GASTROINTESTINAL: Denies abdominal pain, nausea, vomiting, or diarrhea. GENITOURINARY: Denies dysuria or hematuria. SKIN: Denies rash or itching. MUSCULOSKELETAL: Reports left shoulder pain and left lateral rib pain. NEUROLOGIC: Denies headache, numbness, dizziness, or weakness. PSYCHIATRIC: Denies anxiety or depression. 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 HEAD: Normocephalic, atraumatic. EYES: PERRLA and EOMI. ENT: Nares clear, no rhinorrhea or epistaxis. Mucous membranes moist. Oropharynx without tonsillar hypertrophy exudate or other lesions. Bilateral TMs pearly polk nonbulging NECK: Supple. No adenopathy or masses. No carotid bruits or JVD CHEST: Clear to auscultation. No respiratory distress. No wheezes rales or rhonchi. There is tenderness over the left lateral ribs HEART: Regular rate and rhythm. No murmur heard. Normal peripheral pulses. ABDOMEN: Soft, nontender, nondistended, normal active bowel sounds. EXTREMITIES: Decreased range of motion of left shoulder with elevation of the left upper extremity. There is tenderness in the left trapezius. There is no tenderness in the midline or paraspinous muscles of the cervical spine. NEURO: No focal deficits. Alert and oriented x3. PSYCH: Normal mood and affect. Course Course Emergency Course: This is a 24-year-old female who presented for evaluation of left shoulder pain and left rib pain. X-rays negative for fracture. Exam is consistent muscle strain. Provided with sling. Advise she avoid contact sports for now and follow up with ortho to determine whether imaging such as MRI is clinically warranted. Advised on NSAIDs for pain and RICE therapy. Go to the ER for intractable pain. Patient in agreement with plan of care. Level of Care: Express Care Visit Vital Signs Vital signs: Vital Signs Temperature 36.9 C 12/22/24 14:46 Pulse Rate 92 12/22/24 14:46 Respiratory Rate 18 12/22/24 14:46 Blood Pressure 130/93 H 12/22/24 14:46 Pulse Oximetry 100 12/22/24 14:46 Oxygen Delivery Room Air 12/22/24 14:46 Temperature 36.9 C 12/22/24 14:46 Pulse Rate 92 12/22/24 14:46 Respiratory Rate 18 12/22/24 14:46 Blood Pressure 130/93 H 12/22/24 14:46 Pulse Oximetry 100 12/22/24 14:46 Oxygen Delivery Room Air 12/22/24 14:46 Medical Decision Making Vital Signs Vital Signs: Vital Signs Temperature 36.9 C 12/22/24 14:46 Pulse Rate 92 12/22/24 14:46 Respiratory Rate 18 12/22/24 14:46 Blood Pressure 130/93 H 12/22/24 14:46 Pulse Oximetry 100 12/22/24 14:46 Oxygen Delivery Room Air 12/22/24 14:46 Temperature 36.9 C 12/22/24 14:46 Pulse Rate 92 12/22/24 14:46 Respiratory Rate 18 12/22/24 14:46 Blood Pressure 130/93 H 12/22/24 14:46 Pulse Oximetry 100 12/22/24 14:46 Oxygen Delivery Room Air 12/22/24 14:46 Imaging Data Radiologist's impression: HISTORY: left shoulder pain COMPARISON: None TECHNIQUE: 3 views of the left shoulder were performed. FINDINGS: No acute fracture. The glenohumeral and acromioclavicular joint space is maintained The visualized portion of the adjacent left lung is clear. The humeral head is well seated within the glenoid fossa. IMPRESSION: No acute fracture or anterior dislocation. HISTORY: left lateral rib pain COMPARISON: None TECHNIQUE: 3 views of the left ribs were performed along with a frontal view of the chest. FINDINGS: No acute displaced fracture is appreciated. The cardiomediastinal silhouette is unremarkable. The lungs are clear. Bone mineralization is age-appropriate. IMPRESSION: No acute displaced rib fracture. No focal infiltrate or effusion. Discharge Plan Discharge Clinical Impression: Left shoulder strain Patient Disposition: Home, Self-Care Condition: Stable Instructions: Antibiotic Form, Muscle Strain (DC) Patient Language: Upper Sorbian Prescriptions: No Action levonorgestrel-ethinyl estrad [Sronyx] 0.1-20 mg-mcg tablet buspirone 15 mg tablet Follow-up/Referrals: Sudarshan Gallego MD [Physician] - Alfonso,Heron Dupont MD [Primary Care Provider] - Time of Disposition: 16:04
== END 2024-12-22 16:10 | disposition home or self-care (01) ==
PROVIDERS: Emergency Provider Nurse Practitioner; PCP Family Medicine
DX: S46.912A Strain of unspecified muscle, fascia and tendon at shoulder and upper arm level, left arm, initial encounter (principal); W19.XXXA Unspecified fall, initial encounter; Y93.72 Activity, wrestling; F17.290 Nicotine dependence, other tobacco product, uncomplicated
CPT/HCPCS: 71101; 73030; 99214; A4565; G0463